=== PATIENT | female | born 1995 ===

== ENCOUNTER 2024-02-29 09:44 | Emergency (ER) | payer MEDICAID, SELFPAY ==
[2024-02-29 09:55] VITALS: BP 122/76; PULSE 98; RESP 16; TEMP 36.1; O2SAT 97; BMI 34.3
[2024-02-29 10:34] LABS: IDNOW Serial# 08D9AD1C; Strep A Nucleic Acid Negative (Negative)
[2024-02-29 10:58] LABS: Influenza A PCR NEGATIVE (Negative); Influenza B PCR NEGATIVE (Negative); Resp Syncy Virus RNA Qual PCR NEGATIVE (Negative); SARS COV2 PCR INHOUSE NEGATIVE (Negative)
--- NOTE | 2024-02-29 10:58 | ED.URI ---
HPI - URI/Sore Throat General Chief Complaint: Upper Respiratory Symptoms Stated Complaint: sore throat, cold symptoms Time Seen by Provider: 02/29/24 10:07 Source: patient (child ) and family Mode of arrival: ambulatory Limitations: no limitations History of Present Illness ED Provider: Hieu DE GUZMAN HPI Narrative: 28 year old female history of obesity presenting to the emergency department with complaints of sore throat for the past 3-4 days, patient reports that she has noted in the mirror that her tonsils are large and they have white spots. She reports pain is severe and she is having hard time sleeping. She thinks she has strep throat however she has never had strep throat in the past. Her child is sick with an upper respiratory infection. Patient denies fevers, chills, chest pain, shortness breath, headache, neck pain, nausea, vomiting, abdominal pain, vision changes, dizziness and weakness. Related Data Previous Rx's ?Medication ?Instructions ?Recorded Magic Mouthwash 5 ml PO TID #240 mL 02/29/24 Diphen/Lido/Antacid 1:1:1 240 mL suspension azithromycin 250 mg tablet See Rx Instructions PO .COMPLEX #6 02/29/24 tabs prednisone 20 mg tablet 40 mg (2 x 20 mg) PO DAILY 5 days 02/29/24 #10 tabs Allergies Allergy/AdvReac Type Severity Reaction Status Date / Time clonazepam [From Klonopin] Allergy Swelling Verified 02/29/24 09:56 Penicillins Allergy Swelling Verified 02/29/24 09:56 Review of Systems Review of Systems: Yes all other systems are reviewed and are negative PMFSH Past Medical History Attestation statement: The following information was validated with the patient. Source: old records reviewed and nursing notes reviewed Social History Social History Advance Directives: No Advance Directives Information Provided: No Physical Exam Vital Signs: Vital Signs: Last Vital Signs Temp 97 F 02/29/24 09:55 Pulse 98 02/29/24 09:55 Resp 16 02/29/24 09:55 BP 122/76 02/29/24 09:55 Pulse Ox 97 02/29/24 09:55 O2 Del Method Room Air 02/29/24 09:55 BMI result Body Mass Index 34.3 vss Appearance: Alert.? Oriented X3.? No acute distress.? Head: Normocephalic, atraumatic, no step-offs or deformities Eyes: Pupils equal, round and reactive to light.? ENT: Pharynx w/ b/l tonsils enlarged w/ exudate b/l uvula midline. Speaking in full sentences controlling secretions well.??External ears normal, No pain with manipulation of external ears bilaterally. No mastoid tenderness. Neck: Normal inspection.? Neck supple.? CVS: Normal heart rate and rhythm.? Pulses normal.? Respiratory: No respiratory distress.? Breath sounds normal.? Abdomen: Soft and nontender.? Skin: Skin warm and dry.? Normal skin color.? Normal skin turgor.? Extremities: No lower extremity edema.? No calf ttp. 5/5 strength to bilateral upper and lower extremities Back: No midline tenderness, no C-spine tenderness, full range of motion, no CVA tenderness bilaterally Neuro: Oriented X 3.? No motor deficit.? No sensory deficit. CN 2-12 intact Course Reevaluation(s) Reevaluation #1: strep, flu, covid, rsv negative. Beltrami pending. Time: 11:02 Reevaluation #2: Beltrami test is pending. Will call patient with results Educated patient on diagnosis and treatment plan, answered all question, patient verbalizes understanding. At this time patient will be discharged home, advised to return with new or worsening symptoms. Educated on worrisome signs and symptoms and when to return. At this time I feel comfortable discharge home. Time: 11:28 Medications Administered Discontinued Medications Generic Name Dose Route Start Last Admin Trade Name Cynthia PRN Reason Stop Dose Admin Dexamethasone Sodium Phosphate 10 mg 02/29/24 10:54 02/29/24 11:13 Dexamethasone Sod Phosphate 10 Mg/Ml Vial IVPUSH 02/29/24 10:55 10 mg ONCE ONE Administration Medical Decision Making Medical Decision Making MDM Narrative: 1100 28 year old female presents w/ sore throat x few days PE - Pharynx w/ b/l tonsils enlarged w/ exudate b/l uvula midline. Speaking in full sentences controlling secretions well.??External ears normal, No pain with manipulation of external ears bilaterally. No mastoid tenderness. HX and pe concerning for mono vs strep. 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 Plan- viral testing. Strep test Differential Diagnosis Differential Diagnoses: The differential diagnosis associated with the presentation includes (HX and pe concerning for mono vs strep. 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 ) Admission/Observation Consideration of admission/observation: Escalation of care including admission/observation considered Lab Data MDM Lab Attestation statement: I reviewed the patient's lab results. Labs: Lab Results 02/29/24 Range/Units 10:10 Influenza Type A (PCR) NEGATIVE (Negative) Influenza Type B (PCR) NEGATIVE (Negative) RSV RNA Qual (PCR) NEGATIVE (Negative) SARS-CoV-2 RNA (RT-PCR) NEGATIVE (Negative) S. pyogenes GrpA MIN Negative (Negative) Prescription Management I considered prescription management with: Antibiotic and Other (steroids, magic mouthwash) Chronic Conditions Patient?s care impacted by: Other (obesity ) Critical Care Time Critical Care Time Critical Care Time: Yes Total Critical Care Time: 35 Attestation: I attest to this time spent taking care of the patient, obtaining history, physical, reviewing labs, imaging, speaking to my attending, specialist or hospitalist. Discharge Plan Discharge Clinical Impression: Pharyngitis Patient Disposition: Home, Self-Care Instructions: Pharyngitis (ED) Additional Instructions: Take your medications as prescribed. If you were prescribed antibiotics today, it is important that you take your medication to their entirety, do not skip any doses, do not finish them early. Follow-up with your primary care provider this week. Return to the emergency department with new or worsening symptoms. In case of emergency call 911 Prescriptions: New azithromycin 250 mg tablet See Rx Instructions .ROUTE .COMPLEX Qty: 6 0RF Rx Instructions: For 250 mg dose pack: take 500 mg today (day 1), then 250 mg for 4 days (days 2-5) prednisone 20 mg tablet 40 mg PO DAILY 5 Days Qty: 10 0RF Magic Mouthwash Diphen/Lido/Antacid 1:1:1 240 mL suspension 5 ml PO TID Qty: 240 0RF Rx Instructions: Lidocaine Viscous 2 % 80mL; diphenhydramine 12.5 mg/5 mL 80mL; aluminum-mag hydrox-simeth [id number]/5mL 80mL Swish and spit, do not swallow Referrals: Physician,Unknown J [Primary Care Provider] - 2 days Stand Alone Forms: Work/School Release Print Language: Malay
[2024-02-29] MEDS: dexAMETHasone sod phosphate 10 MG/ML VIAL IVPUSH (11:13)
[2024-02-29 11:49] VITALS: BP 122/76; PULSE 98; RESP 16; TEMP 36.1; O2SAT 97
[2024-02-29 11:52] LABS: Monotest Negative (Negative)
== END 2024-02-29 12:20 | disposition home or self-care (01) ==
PROVIDERS: Physician Assistant; Emergency Provider Emergency Medicine
DX: J02.9 Acute pharyngitis, unspecified (principal); Z03.818 Encounter for observation for suspected exposure to other biological agents ruled out
CPT/HCPCS: 0241U; 36415; 86308; 87651; 99283; J1100

== ENCOUNTER 2024-09-22 14:12 | Emergency (ER) | payer MEDICAID, SELFPAY ==
[2024-09-22 14:25] VITALS: BP 128/85; PULSE 78; RESP 18; TEMP 36.9; O2SAT 98; BMI 37.7
--- NOTE | 2024-09-22 14:29 | ED.ABDPAIN ---
HPI - Abdominal Pain General Chief Complaint: Abdominal Pain Stated Complaint: n/v/d , abd pain Time Seen by Provider: 09/22/24 17:41 Source: patient Limitations: no limitations History of Present Illness ED Provider: Yusra Disla PA-C HPI narrative: 29-year-old female presents with nausea vomiting diarrhea since last night. Patient woke with symptoms abruptly. Her son is sick with similar symptoms. Denies abdominal pain, cough cold symptoms or fever.No recent hospitalization, use of antibiotics or travel out of the country. Related Data Previous Rx's ?Medication ?Instructions ?Recorded Magic Mouthwash 5 ml PO TID #240 mL 02/29/24 Diphen/Lido/Antacid 1:1:1 240 mL suspension azithromycin 250 mg tablet See Rx Instructions PO .COMPLEX #6 02/29/24 tabs prednisone 20 mg tablet 40 mg (2 x 20 mg) PO DAILY 5 days 02/29/24 #10 tabs acetaminophen 500 mg tablet 1,000 mg (2 x 500 mg) PO Q8H PRN 09/22/24 (Acetaminophen Extra Strength) fever or pain #30 tabs ondansetron HCl 4 mg tablet 4 mg PO Q8H PRN nausea and 09/22/24 vomiting #10 tabs Allergies Allergy/AdvReac Type Severity Reaction Status Date / Time clonazepam [From Klonopin] Allergy Swelling Verified 09/22/24 14:28 Penicillins Allergy Swelling Verified 09/22/24 14:28 Review of Systems Review of Systems Yes all other systems are reviewed and are negative Constitutional: Denies fatigue and Denies fever(s) Cardiovascular: Denies chest pain and Denies dyspnea Respiratory: Denies cough and Denies dyspnea Gastrointestinal: Denies abdominal pain, Reports diarrhea, Reports nausea and Reports vomiting Endocrine: Denies fatigue PMFSH Past Medical History Attestation statement: The following information was validated with the patient. Social History Social History Advance Directives: No Advance Directives Information Provided: Yes Do you have a plan to hurt others: No Plan Patient : No Physical Exam ED Vital Signs: Vital Signs - 24 hr 09/22/24 14:25 09/22/24 18:21 Temperature 98.5 F 98.3 F Pulse Rate 78 65 Respiratory Rate 18 14 Blood Pressure 128/85 107/53 L Pulse Oximetry 98 100 Oxygen Delivery Method Room Air Room Air BMI result Body Mass Index 37.7 Const Other: Alert, well-appearing Orientation/consciousness: patient oriented x3 Resp Effort & Inspection: normal respiratory effort Cardio Other: Normal peripheral perfusion GI Other: Abdomen is soft, nondistended nontender Skin Other: Warm dry no rash Neuro General: patient oriented x3, no focal motor deficits and CN's II-XI intact bilaterally Psych Other: Cooperative Course Course Course Narrative: This is a Rapid Medical Examination (RME) performed by Odin Willis PA-C in triage. Full HPI, ROS, assessment and treatment plan per primary provider in the Main ED. 29 yo female here for eval of LLQ abd pain, vomiting and diarrhea beginning around 0200 this morning. reports eating pork chops, rice, and beans around 1900 yesterday. no one at home w/ similar symptoms. Plan: labs, UA, u preg, covid testing Medical Decision Making Medical Decision Making [facility] Narrative: 29-year-old female presents with nausea vomiting diarrhea since last night. Patient woke with symptoms abruptly. Her son is sick with similar symptoms. Denies abdominal pain, cough cold symptoms or fever. No recent hospitalization, use of antibiotics or travel out of the country No chronic issues History: Per patient I have considered the following differential diagnoses: Viral gastroenteritis, traveler's diarrhea, C diff, diverticulitis Plan: Screening labs and COVID tests ordered from triage, unremarkable. The patient is a viral gastroenteritis, her son is sick with same symptoms, and such illness has been prevalent within the community. This is not diverticulitis, she is not complaining abdominal pain particularly in the left lower quadrant and her exam was benign. She has no risk factors for C diff or traveler's diarrhea. We will Treat symptomatically. I have independently reviewed the following tests: Labs: COVID negative, no leukocytosis, not anemic, no electrolyte abnormality Lab Data 09/22/24 14:44 09/22/24 14:44 Labs: Lab Results 09/22/24 Range/Units 14:44 WBC 6.5 (4.8-10.8) X10*3/uL RBC 4.50 (4.20-5.50) X10*6/uL Hgb 13.8 (12.0-16.0) g/dl Hct 40.9 (37.0-47.0) % MCV 90.9 (80.0-98.0) fL MCH 30.7 (27.0-33.0) pg MCHC 33.7 (31.0-35.0) g/dl RDW 12.6 (11.0-16.0) % Plt Count 231 (160-400) X10*3/uL MPV 9.7 (9.4-12.3) fL Immature Gran % (Auto) 0.5 H (0.0-0.4) % Neut % (Auto) 82.6 H (45-73) % Lymph % (Auto) 10.6 L (20-40) % [place] % (Auto) 4.6 (2-11) % Eos % (Auto) 1.4 (0-4) % Baso % (Auto) 0.3 (0-2) % Lymph # (Auto) 0.7 L (1.2-4.9) X10*3/uL [place] # (Auto) 0.3 (0.1-1.2) X10*3/uL Eos # (Auto) 0.1 (0.0-0.4) X10*3/uL Baso # (Auto) 0.0 (0.0-0.2) X10*3/uL Abs Immat Gran (auto) 0.03 (0.00-0.03) X10*3/uL Absolute Neuts (auto) 5.4 (2.0-8.3) x10*3/uL Absolute Nucleated RBC 0.000 (0.0-0.012) X10*3/uL Nucleated RBC % (auto) 0.0 (0.0-0.2) /100WBC Sodium 139 (135-145) mmol/L Potassium 4.0 (3.3-5.1) mmol/L Chloride 108 (96-108) mmol/L Carbon Dioxide 23 (22-29) mmol/L Anion Gap 12 (12-20) BUN 12 (9-16) mg/dL Creatinine 0.65 (0.5-1.4) mg/dL Estim Creat Clear Calc 146.5 Estimated GFR > 60 Random Glucose 91 (60-115) mg/dL Calcium 9.5 (8.4-10.2) mg/dL Magnesium 1.9 (1.6-2.6) mg/dL Total Bilirubin 0.8 (0.0-1.0) mg/dL AST 22 (5-31) U/L ALT 20 (0-31) U/L Alkaline Phosphatase 77 (39-117) U/L Total Protein 7.7 (6.5-8.0) g/dL Albumin 4.5 (3.5-5.0) g/dL Lipase 19 (8-78) U/L Urine Color Yellow Urine Appearance Clear Urine pH 5.5 (5.0-9.0) Ur Specific [place] >= 1.030 H (1.005-1.025) Urine Protein Negative (Neg-Trace) mg/dL Urine Glucose (UA) Negative (Negative) mg/dL Urine Ketones Trace (Negative) mg/dL Urine Blood Negative (Negative) Urine Nitrite Negative (Negative) Ur Leukocyte Esterase Trace H (Negative) Urine RBC 0-2 (0-2) /HPF Urine WBC 0-5 (0-5) /HPF Ur Squamous Epith Cells 3-5 (0-2) /HPF Urine Bacteria None Seen (None Seen) Hyaline Casts 0-2 (0-2) /LPF Urine Test NEGATIVE (NEGATIVE) COVID-19 (LADI) Negative (Negative) COVID-19 Clin Com See Note Medications Administered Discontinued Medications Generic Name Dose Route Start Last Admin Trade Name Freq PRN Reason Stop Dose Admin Acetaminophen 975 mg 09/22/24 18:22 09/22/24 18:26 Acetaminophen 325 Mg Tablet PO 09/22/24 18:23 975 mg ONCE ONE Administration Sodium Chloride 1,000 mls @ 999 mls/hr 09/22/24 17:45 09/22/24 18:44 Ns IV 09/22/24 18:45 Infused .Q1H1M GAVIN Infusion Ondansetron HCl 4 mg 09/22/24 17:42 09/22/24 17:52 Ondansetron Hcl 4 Mg/2 Ml Vial IVPUSH 09/22/24 17:43 4 mg ONCE ONE Administration Discharge Plan Discharge Clinical Impression: Viral gastroenteritis Patient Disposition: Home, Self-Care Instructions: Gastroenteritis (ED) Additional Instructions: You have a virus causing your symptoms, you had no lab abnormalities, you screen negative for COVID. See home care instructions. Uses Zofran as needed for nausea, use the Tylenol as needed for headache and body ache or fever. Follow up with your primary care provider as needed. Prescriptions: New ondansetron HCl 4 mg tablet 4 mg PO Q8H PRN (Reason: nausea and vomiting) Qty: 10 0RF acetaminophen [Acetaminophen Extra Strength] 500 mg tablet 1,000 mg PO Q8H PRN (Reason: fever or pain) Qty: 30 0RF No Action azithromycin 250 mg tablet See Rx Instructions .ROUTE .COMPLEX Qty: 6 0RF Rx Instructions: For 250 mg dose pack: take 500 mg today (day 1), then 250 mg for 4 days (days 2-5) prednisone 20 mg tablet 40 mg PO DAILY 5 Days Qty: 10 0RF Magic Mouthwash Diphen/Lido/Antacid 1:1:1 240 mL suspension 5 ml PO TID Qty: 240 0RF Rx Instructions: Lidocaine Viscous 2 % 80mL; diphenhydramine 12.5 mg/5 mL 80mL; aluminum-mag hydrox-simeth [id number]/5mL 80mL Swish and spit, do not swallow Print Language: Palestinian
[2024-09-22 15:03] LABS: MANUAL DIFF FLAG NO
[2024-09-22 15:08] LABS: Appearance Urine Clear; Basophils Percent Auto 0.3 % (0-2); Color Urine Yellow; Eosinophils Absolute Auto 0.1 X10*3/uL (0.0-0.4); Eosinophils Percent Auto 1.4 % (0-4); Glucose Urine UA Negative (Negative); Hematocrit 40.9 % (37.0-47.0); Hemoglobin 13.8 g/dl (12.0-16.0); Imm Gran Abs Auto 0.03 X10*3/uL (0.00-0.03); Imm Gran Pct Auto 0.5 % (0.0-0.4); Leukocyte Esterase Urine Trace (Negative); Lymphocytes Absolute Auto 0.7 X10*3/uL (1.2-4.9); Lymphocytes Percent Auto 10.6 % (20-40); Mean Corpuscular HGB Conc 33.7 g/dl (31.0-35.0); Mean Corpuscular Hemoglobin 30.7 pg (27.0-33.0); Mean Corpuscular Volume 90.9 fL (80.0-98.0); Mean Platelet Volume 9.7 fL (9.4-12.3); Monocytes Absolute Auto 0.3 X10*3/uL (0.1-1.2); Monocytes Percent Auto 4.6 % (2-11); Neutrophils Absolute Auto 5.4 x10*3/uL (2.0-8.3); Neutrophils Percent Auto 82.6 % (45-73); Nitrite Urine Negative (Negative); PH 5.5 (5.0-9.0); Platelet Count 231 X10*3/uL (160-400); Red Cell Distribution Width 12.6 % (11.0-16.0); Specific Gravity - Urine >= 1.030 (1.005-1.025); UMIC TRIGGER UACC YES; Urine Blood Negative (Negative); Urine Ketones Trace mg/dL (Negative); Urine Protein Negative (Neg-Trace); White Blood Count 6.5 X10*3/uL (4.8-10.8)
[2024-09-22 15:10] LABS: UPreg QC Valid YES; Urine Pregnancy NEGATIVE (NEGATIVE)
[2024-09-22 15:16] LABS: Bacteria Urine None Seen (None Seen); Hyaline Casts Urine 0-2 /LPF (0-2); RBC Urine 0-2 /HPF (0-2); WBC Urine 0-5 /HPF (0-5)
[2024-09-22 15:20] LABS: Alanine Aminotransferase 20 U/L (0-31); Albumin Level 4.5 g/dL (3.5-5.0); Alkaline Phosphatase 77 U/L (39-117); Anion Gap 12 (12-20); Aspartate Amino Transferase 22 U/L (5-31); Bilirubin Total 0.8 mg/dL (0.0-1.0); Blood Urea Nitrogen 12 mg/dL (9-16); Calcium 9.5 mg/dL (8.4-10.2); Carbon Dioxide 23 mmol/L (22-29); Chloride 108 mmol/L (96-108); Creatinine Clr Calc Pharmacy 146.5; Estimated Glomerular Filt Rate > 60; Glucose Random 91 mg/dL (60-115); Lipase 19 U/L (8-78); Magnesium 1.9 mg/dL (1.6-2.6); Sodium 139 mmol/L (135-145); Total Protein 7.7 g/dL (6.5-8.0)
[2024-09-22 15:23] LABS: COVID-19 Test Negative (Negative); IDNOW Serial# 58CA691E
[2024-09-22] MEDS: 0.9 % Sodium Chloride 1,000 ML 999 ML IV (17:52)
[2024-09-22] MEDS: ondansetron HCL 4 MG/2 ML VIAL IVPUSH (17:52)
[2024-09-22 18:21] VITALS: BP 107/53; PULSE 65; RESP 14; TEMP 36.8; O2SAT 100
[2024-09-22] MEDS: Acetaminophen 325 MG TABLET 975 MG PO (18:26)
--- NOTE | 2024-09-22 18:27 | PC.NURSE ---
pt medicated per MAR
[2024-09-22 19:49] VITALS: BP 107/53; PULSE 65; RESP 14; TEMP 36.8; O2SAT 100
== END 2024-09-22 19:49 | disposition home or self-care (01) ==
PROVIDERS: Physician Assistant Medical; Emergency Provider Internal Medicine
DX: A08.4 Viral intestinal infection, unspecified (principal); R11.2 Nausea with vomiting, unspecified; R10.32 Left lower quadrant pain; Z11.52 Encounter for screening for COVID-19
CPT/HCPCS: 80053; 81001; 81025; 83690; 83735; 85025; 87635; 96361; 96374; 99284; J2405

== ENCOUNTER 2025-01-09 09:47 | Outpatient (REF) | payer MEDICAID, SELFPAY ==
--- NOTE | ~2025-01-09 | XR_ITS ---
EXAMINATION: XR FOOT 3 OR MORE VIEWS RIGHT HISTORY: R toe pain, h/o trauma COMPARISON: There are no prior studies available for comparison. FINDINGS: Three views of the right foot are submitted. Osseous mineralization is normal. There is no fracture or dislocation. The joint spaces are preserved. The soft tissues are unremarkable. XR/XR foot RT min 3V IMPRESSION: Unremarkable examination of the right foot. Electronically signed by: Alex Orozco MD 01/09/2025 10:21 AM EDT
--- OUTSIDE RECORDS SUMMARY | 2025-01-09 11:00 | XMS_ITS | Encounter Summary ---
Author Organization [employer] Address [address] [place] [address] Care Team Providers Care Crane Follower Name Role Phone Jeannie Peña DO Primary Care Provider [phone] Encounter Details Date Type Department Care Team (Late st Contact Info) Description 01/09/2025 9:00 AM EDT Office Visit [facility] MED[facility]INE [address] [place], [place] [phone] Jeannie Peña DO [address] [place], [place] [phone] Chronic toe pain, right foot (Primary Dx); Routine history and physical examination of adult; Obesity (BMI 30-39.9) Social History Tobacco Use Types Packs/Day Years Used Date Smoking Tobacco: Every Day Cigarettes Smokeless Tobacco: Never Tobacco Cessation:Ready to Q uit: Not Asked; Counseling Given: Not Answered Alcohol Use Standard Drinks/Week Comments Never 0 (1 standard drink = 0.6 oz pur e alcohol) Depression Answer Date Recorded Patient Health Questionnaire-9 Score 12 01/09/2025 Patient Health Questionnaire-9 Score 12 01/09/2025 Last PHQ-9: Questionnaire Data Not on file 0 01/09/2025 Housing Stability Answer Date Recorded What is your housing situation today? I have doyle gillette 01/09/[address] you li ve. Do you have problems with any of the following? None of the above 01/09/2025 Food Insecurity Answer Date Recorded Within the past 12 months, y ou worried that your food would run out before you got money to buy more: Never True 01/09/2025 Within the past 12 months,th e food you bought just didn't last and you didn't have enough money to get more: Never True Transportation Answer Date Recorded In the past 12 months, has l ack of transportation kept you from medical appts, meetings, work or from getting things needed for daily living? Yes, it has kept me from non-medical meetings, work, or getting things that I need 01/09/2025 Utilities Answer Date Recorded In the past 12 months, has t he electric, gas, oil or water company threatened to shut off services in your home? No 01/09/2025 Depression Answer Date Recorded Patient Health Questionnaire-2 Score 3 01/09/2025 Internet Access Answer Date Recorded Internet Access Q1 Yes 01/09/2025 Internet Access Q2 Not on file 01/09/2025 Comments No Sex and Gender Information Value Date Recorded Sex Assigned at Female 11/01/2024 8:56 AM EST Legal Sex Female 11:08 AM EDT Gender Identity Female 11/01/2024 8:56 AM EST Sexual Orientation Straight 11/01/2024 8: 56 AM EST documented as of this encounter Last Filed Vital Signs Vital Sign Reading Time Taken Comments Blood Pressure 118/70 01/09/2025 9:05 AM EDT Pulse 82 01/09/2025 9:05 AM EDT Temperature 36.8 ??C (98.3 ??F) 01/09/2025 9:05 AM ED T Respiratory Rate 21 01/09/2025 9:05 AM EDT Oxygen Saturation 98% 01/09/2025 9:05 AM EDT Inhaled Oxygen Concentration - - Weight 105 kg (231 lb) 01/09/2025 9:05 AM EDT Height 162.6 cm (5' 4 ) 01/09/2025 9:05 AM EDT Body Mass Index 39.65 01/09/2025 9:05 AM EDT documented in this encounter Plan of Treatment Upcoming Encounters Date Type Department Care Team (Late st Contact Info) Description 02/04/2025 9:30 AM EDT Procedure Visit [facility] MED[facility]INE [address], [place] [phone] Ina You CNM [address] [place] [address] Scheduled Orders Name Type Priority Associated Diagnoses Orde r Schedule T4, Free Lab Routine Routine history and physical examination of adult Obesity (BMI 30-39.9) Expected: 01/09/2025 (Approximate), Expires: 01/09/2026 Lipid Panel, Standard Lab Routine Routine history and physical examination of adult Obesity (BMI 30-39.9) Expected: 01/09/2025 (Approximate), Expires: 01/09/2026 TSH Lab Routine Routine history and physical examination of adult Obesity (BMI 30-39.9) Expected: 01/09/2025 (Approximate), Expires: 01/09/2026 Vitamin D, 25-Hydroxy, Total, Immunoassay Lab Routine Routine history and physical examination of adult Obesity (BMI 30-39.9) Expected: 01/09/2025 (Approximate), Expires: 01/09/2026 Hepatic Function Panel Lab Routine Routine history and physical examination of adult Obesity (BMI 30-39.9) Expected: 01/09/2025 (Approximate), Expires: 01/09/2026 Hemoglobin A1c Lab Routine Routine history and physical examination of adult Obesity (BMI 30-39.9) Expected: 01/09/2025 (Approximate), Expires: 01/09/2026 CBC Lab Routine Routine history and physical examination of adult Obesity (BMI 30-39.9) Expected: 01/09/2025, Expires: 01/09/2026 Basic Metabolic Panel Lab Routine Routine history and physical examination of adult Obesity (BMI 30-39.9) Expected: 01/09/2025 (Approximate), Expires: 01/09/2026 Hepatitis B surface antigen, EIA Lab Routine Routine history and physical examination of adult Obesity (BMI 30-39.9) Expected: 01/09/2025 (Approximate), Expires: 01/09/2026 Chlamydia/N. Gonorrhoeae RNA, TMA, Urogenitial Microbiology Routine Routine history and physical examination of adult Obesity (BMI 30-39.9) Ordered: 01/09/2025 HIV-1/2 Antigen and Antibodies, Fourth Generation, with Reflexes Lab Routine Routine history and physical examination of adult Obesity (BMI 30-39.9) Expected: 01/09/2025 (Approximate), Expires: 01/09/2026 Hepatitis C Antibody with Reflex to HCV, RNA, Quantitative, Real-Time PCR Lab Routine Routine history and physical examination of adult Obesity (BMI 30-39.9) Expected: 01/09/2025, Expires: 01/09/2026 RPR (Monitor) with Reflex to??Titer Lab Routine Routine history and physical examination of adult Obesity (BMI 30-39.9) Expected: 01/09/2025, Expires: 01/09/2026 Hepatitis B Surface Antibody, Qualitative Lab Routine Routine history and physical examination of adult Obesity (BMI 30-39.9) Expected: 01/09/2025 (Approximate), Expires: 01/09/2026 Hepatitis A Antibody, Total Lab Routine Routine history and physical examination of adult Obesity (BMI 30-39.9) Expected: 01/09/2025 (Approximate), Expires: 01/09/2026 Hepatitis B Core Antibody, Total Lab Routine Routine history and physical examination of adult Obesity (BMI 30-39.9) Expected: 01/09/2025 (Approximate), Expires: 01/09/2026 T-SPOT??.TB Lab Routine Routine history and physical examination of adult Obesity (BMI 30-39.9) Expected: 01/09/2025 (Approximate), Expires: 01/09/2026 documented as of this encounter Procedures Procedure Name Priority Date/Time Associated Diagnosis Comments XR FOOT 3+ VIEWS RIGHT Routine 01/09/2025 9:47 AM EDT Chronic toe pain, right foot documented in this encounter Results * XR Foot 3+ Views Right (01/09/2025 9:47 AM EDT) Anatomical Region Laterality Modality Lower Extremities, Foot Right Radiogra phic Imaging 01/09/2025 9:47 AM EDT Narrative 01/09/2025 10:24 AM EDT ?[facility] ?[address] ?[place] [address] ?XRay Report ? Signed ? Patient: Betts,Karol Sarahy ?MR#: [id number] ?? [id number] ? : 1995 ?Acct:[id number] ? Age/Sex: 29 / F ?ADM Date: 04/16/25 ? Loc: HO.HHCX ? Attending Dr: Jeannie Peña DO ? Ordering Physician: Jeannie Peña DO ?? Date of Service: 01/09/25 ?? Procedure(s): XR foot RT min 3V ?? Accession Number(s): [id number] ? cc: Jeannie Peña DO ? EXAMINATION: ??XR FOOT 3 OR MORE VIEWS RIGHT ? HISTORY: R toe pain, h/o trauma ? COMPARISON: There are no prior studies available for comparison. ? FINDINGS: ? Three views of the right foot are submitted. ??Osseous mineralization is ?? normal. ??There is no fracture or dislocation. ??The joint spaces are ?? preserved. ??The soft tissues are unremarkable. ? XR/XR foot RT min 3V ?? IMPRESSION: ? Unremarkable examination of the right foot. ? Electronically signed by: ??Alex Orozco MD ??01/09/2025 10:21 AM EDT ?? RP ? Dictated By: ?Alex Orozco MD ? Signed By: ?<Electronically signed by Alex Orozco MD in OV> ?01/09/25 1021 ? DD/ 0947 ? TD/TT: 01/09/25 1000 ? Master Tax Advisor: ? Procedure Note Francisco Desouza - 01/09/[address] [address] XRay Report Signed Patient: Karol BettsMR#: [id number] : 1995Acct:[id number] Age/Sex: Date: [birth year]09[birth year]25 Loc: HO.HHCX Attending Dr: Jeannie Peña DO Ordering Physician: Jeannie Peña DO Date of Service: 01/09/25 Procedure(s): XR foot RT min 3V Accession Number(s): [id number] cc: Jeannie Peña DO EXAMINATION: XR FOOT 3 OR MORE VIEWS RIGHT HISTORY: R toe pain, h/o trauma COMPARISON: There are no prior studies available for comparison. FINDINGS: Three views of the right foot are submitted. Osseous mineralization is normal. There is no fracture or dislocation. The joint spaces are preserved. The soft tissues are unremarkable. XR/XR foot RT min 3V IMPRESSION: Unremarkable examination of the right foot. Electronically signed by: Alex Orozco MD 01/09/2025 10:21 AM EDT RP Dictated By: Alex Orozco MD Signed By: <Electronically signed by Alex Orozco MD in OV> 01/09/25 1021 DD/ 0947 TD/TT: 01/09/25 1000 Master Tax Advisor: Jeannie Peña DO IMG XR PROCEDURES Final Resu lt documented in this encounter Visit Diagnoses Diagnosis Chronic toe pain, right foot- Primary Routine history and physical examination of adult Obesity (BMI 30-39.9) documented in this encounter Additional Health Concerns Assessment Noted Time PHQ-9 Depression Total Score: 12 025 10:07 AM EDT documented as of this encounter Care Teams Crane Follower Relationship Specialty Start Date End Date Jeannie Peña DO [address] [place] [id number] PCP - General Family Medicine 01/09/25 documented as of this encounter
--- OUTSIDE RECORDS SUMMARY | 2025-01-09 11:00 | XMS_ITS | Encounter Summary ---
Author Organization [employer] Address [address] 7t [place] [address] Care Team Providers Care Manager Laundry Name Role Phone Jeannie Peña DO Primary Care Provider Encounter Details Date Type Department Care Team (Late st Contact Info) Description 01/09/2025 Telephone [facility] MEDICINE [address] [place], [place] [phone] Jeannie Peña DO [address] [place], [place] [phone] Social History Tobacco Use Types Packs/Day Years Used Date Smoking Tobacco: Every Day Cigarettes Smokeless Tobacco: Never Alcohol Use Standard Drinks/Week Comments Never 0 (1 standard drink = 0.6 oz pur e alcohol) Depression Answer Date Recorded Patient Health Questionnaire-9 Score 12 01/09/2025 Patient Health Questionnaire-9 Score 12 01/09/2025 Last PHQ-9: Questionnaire Data Not on file 0 01/09/2025 Housing Stability Answer Date Recorded What is your housing situation today? I have doyle nain 01/09/[address] you li [...] AM EST documented as of this encounter Miscellaneous Notes * Telephone Encounter - Maddy Tinoco - 01/09/2025 10:16 AM EDT LETTER FOR WORK NEEDED documented in this encounter Plan of Treatment Upcoming Encounters Date Type Department Care Team (Late st Contact Info) Description 02/04/2025 9:30 AM EDT Procedure Visit [facility] MEDICINE [address] [place] [address] Ina You CNM [address] [place] [address] documented as of this encounter Visit Diagnoses Not on filedocumented in this encounter Additional Health Concerns Assessment Noted Time PHQ-9 Depression Total Score: 12 025 10:07 AM EDT documented as of this encounter Care Teams Manager Laundry Relationship Specialty Start Date End Date Jeannie Peña DO [address] [place] [address] PCP - General Family Medicine 01/09/25 documented as of this encounter
--- OUTSIDE RECORDS SUMMARY | 2025-01-09 11:00 | XMS_ITS | Clinical Summary ---
Author Organization [employer] [facility] Address [address] [facility] 7t [place] [address] Care Team Providers Care Hydroelectric Powerplant Supervisor Name Role Phone Jeannie Peña DO Primary Care Provider Allergies Active Allergy Reactions Criticality Noted Date Comments Clonazepam Rash Low 01/09/2025 Penicillins Hives 01/09/2025 Medications No known medications Active Problems Problem Noted Date Diagnosed Date Constipation 01/09/2025 Severe obesity (BMI 35.0-39.9) with comorbidity 01/09/2025 Cervical high risk HPV (human papillomavirus) te st positive 01/09/2025 S/P VSD repair 12/21/2018 Depression 12/21/2018 Anxiety 12/21/2018 Chronic thoracic back pain 12/10/2016 Encounters Date Type Department Care Team Description 01/09/2025 9:00 AM EDT Office Visit [facility] MED[facility] [address] [place] [address] Jeannie Peña DO Chronic toe pain, right foot (Primary Dx); Routine history and physical examination of adult; Obesity (BMI 30-39.9) 01/09/2025 Telephone [facility] MEDICINE [address] [place] [address] Jeannie Peña DO 01/09/2025 Travel 12/31/2024 Patient Outreach [facility] MEDICINE [address] [place] [address] Jeannie Peña DO Pre-visit Planning ((Unable to reach for PVP screening, LVM)) 12/07/2024 Population Health Risk Score [facility] ([facility]) Department [address] [facility] 7 [place] [phone] Provider, Population Health Generic 10/30/2024 Telephone [facility] MEDICINE [address] [place] [address] Melvin Aranda MA chartprep 10/22/2024 Patient Outreach [facility] [address] [place] [phone] Frank Moss MD Pre-visit Planning from Last 3 Months Immunizations Name Administration Dates Next Due DTaP 02/03/2000, 7,08/02/1996,04/03,1995 HPV, Quadrivalent 03/11/2014,11/02/2011,11/14/19 10 Hep A, ped/adol, 2 dose 05/23/2008,11/23/2007 Hep B, Adolescent or Pediatric 04/03/1996,1995,1995 Hib (PRP-T) 03/01/1997, 6,04/03/1996,10/25 IPV 02/03/2000, 6,04/03/1996,10/25 Influenza, IIV3, injectable 06/30/2015 Influenza, seasonal, injecta ble, preservative free 06/30/2015 MMR 02/03/2000,03/01/1997 Meningococcal MCV4P ACYW-135 03/11/2014,11/02/19 11 Pneumococcal Conjugate PCV 13 11/02/2010 Tdap 02/15/2022, 8,03/26/2015,03/24,06/03/2009 Varicella 11/23/2007,08/07/2007 Family History Medical History Relation Name Comments Asthma Brother Diabetes Father Hyperlipidemia Father Hypertension Father No Known Problems Mother Diabetes Paternal Grandmother Hyperlipidemia Paternal Grandmother Hypertension Paternal Grandmother Asthma Sister Relation Name Status Comments Brother Father Alive Mother Alive Paternal Grandmother Sister Social History Tobacco Use Types Packs/Day Years [...] Orientation Straight 11/01/2024 8: 56 AM EST Last Filed Vital Signs Vital Sign Reading [...] Mass Index 39.65 01/09/2025 9:05 AM EDT Plan of Treatment Upcoming Encounters Date Type Department Care Team ([facility] st Contact Info) Description 02/04/2025 9:30 AM EDT Procedure Visit [facility] MEDICINE [address] [place], [place] [phone] Ina You, JAZZ [address] [place] [address] Health Maintenance Due Date Last Done Comments HIV Screening 1995 Lipid Panel 1995 Family Planning (PISQ) 2010 Pneumococcal Vaccine: Pediatrics (0 to 5 Years) and At-Risk Patients (6 to 49) Years) (2 of 2 - PPSV23) 12/28/2010 11/02/2010 Hepatitis C Screening 2013 Pap Smear 2016 COVID-19 Vaccine ( season) 2024 Influenza Vaccine (#1) 2024 06/30/2015, 2014 Depression Monitoring 07/11/2025 01/09/2025, 025 Alcohol/Substance Use Screening 01/09/2026 01/09/2025 Depression Screening 01/09/2026 01/09/2025, 01/10/20 25 SDOH Screening 01/09/2026 01/09/2025 Tobacco Screening 01/09/2026 01/09/2025 DTaP/Tdap/Td Vaccines (11 - Td or Tdap) 02/16/2032 02/15/2022, 04/23/2018, 03/26/2015, Additional history exists Zoster Vaccines (1 of 2) 2045 RSV Patients and Patients Aged 60 years or older (1 - 1-dose 75+ series) 2070 Hepatitis B Vaccines Completed 04/03/1996, 1995, 1995 HIB Vaccines Completed 03/01/1997, 03/1996, 04/03/1996, Additional history exists IPV Vaccines Completed 02/03/2000, 03/1996, 04/03/1996, Additional history exists Hepatitis A Vaccines Completed 05/23/2008, 11/23/19 08 HPV Vaccines Completed 03/11/2014, 03/2012, 11/14/2009 Meningococcal Vaccine Completed 03/11/2014, 011 RSV under 20 months Aged Out No longe r eligible based on patient's age to complete this topic Rotavirus Vaccines Aged Out No longer eligible based on patient's age to complete this topic Procedures Procedure Name Priority Date/Time Associated Diagnosis Comments XR FOOT 3+ VIEWS RIGHT Routine 01/09/2025 9:47 AM EDT Chronic toe pain, right foot from Last 3 Months Results * XR Foot 3+ Views Right (01/09/2025 9:47 AM EDT) Anatomical Region Laterality Modality Lower Extremities, Foot Right Radiogra phic Imaging 01/09/2025 9:47 AM EDT Narrative 01/09/2025 10:24 AM EDT ?[facility] ?[address] ?[place] [address] ?XRay Report ? Signed ? Patient: Karol Betts ?MR#: [id number] ?? [id number] ? : 1995 ?Acct:[id number] ? Age/Sex: 29 / F ?ADM Date: 01/09/25 ? Loc: HO.HHCX ? Attending Dr: Jeannie Peña DO ? Ordering Physician: Jeannie Peña DO ?? Date of Service: 01/09/25 ?? Procedure(s): XR foot RT min 3V ?? Accession Number(s): [id number] ? cc: Jeannie Peña DO ? EXAMINATION: [...] DD/ 0947 ? TD/TT: 01/09/25 1000 ? Printed Circuit Board Layout Designer: ? Procedure Note Randiter, Image - 01/09/2025 [facility] [address] [place] [address] XRay Report Signed Patient: Karol BettsMR#: [id number] : 1995Acct:[id number] Age/Sex: Date: 01/09/25 Loc: HO.HHCX Attending Dr: Jeannie Peña DO Ordering Physician: Jeannie Peña DO Date of Service: 01/09/25 Procedure(s): XR foot RT min 3V Accession Number(s): [id number] cc: Jeannie Peña DO EXAMINATION: XR FOOT [...] Alex Orozco MD 01/09/2025 10:21 AM EDT Dictated By: Alex Orozco MD Signed By: <Electronically signed by Alex Orozco MD in OV> 01/09/25 1021 DD/ 0947 TD/TT: 01/09/25 1000 Printed Circuit Board Layout Designer: Jeannie Peña DO IMG XR PROCEDURES Final Resu lt from Last 3 Months Insurance * Guarantor: Karol Betts Account Type Relation to Patient Date of Phone Billing Address Personal/Family Self [address] [place] [address] [facility] C3 Care Teams Hydroelectric Powerplant Supervisor Relationship Specialty Start Date End Date Jeannie Peña DO [address] [place] [id number] PCP - General Family Medicine 01/09/25
--- OUTSIDE RECORDS SUMMARY | 2025-01-09 11:00 | XMS_ITS | Clinical Summary ---
Author Organization [facility] it Address [address] [place] [address] Care Team Providers Care Control Room Helper Name Role Phone Dada Will MD Primary Care Provider [phone] Surgical History Surgery Date Site/Laterality Comments CARDIAC SURGERY 09/1995 PROCEDURE: HISTORICAL HEART SURGERY(ASD,VSD,VALVES); COMMENT: VSD repair Medical History Medical History Date Comments Bipolar affective (CMS/HCC V24, CMS/HCC V28) 06/30/2015 DX:Bipolar affective (HCC) Depression 12/21/2018 DX:Depression Anxiety 12/21/2018 DX:Anxiety Large breasts 12/10/2016 DX:Large breasts Chronic thoracic back pain 12/10/2016 DX:Ch ronic thoracic back pain S/P VSD repair 12/21/2018 DX:S/P VSD repai r Homelessness 12/21/2018 DX:Homelessness Family History Medical History Relation Name Comments Diabetes Maternal Grandmother Relation Name Status Comments Brother Alive x1 healthy Father Alive unknown history Maternal Grandfather Alive Maternal Grandmother Alive Mother Alive healthy Paternal Grandfather Sister Alive x3 healthy Social History Tobacco Use Types Packs/Day Years Used Date Smoking Tobacco: Former Cigarettes Q uit: 11/20/2014 Smokeless Tobacco: Never Alcohol Use Standard Drinks/Week Comments Yes 0 (1 standard drink = 0.6 oz pur e alcohol) Comments Unknown Sex and Gender Information Value Date Recorded Sex Assigned at Not on file Legal Sex Female 2:15 AM EST Gender Identity Not on file Sexual Orientation Not on file Obstetrics History Plan of Treatment Health Maintenance Due Date Last Done Comments Cervical Cancer Screening: Pap Smear 2016 COVID-19 Vaccine (1 - 2024-25 season) 2024 DTaP,Tdap,and Td Vaccines (8 - Td or Tdap) 03/26/2025 03/26/2015, 06/03/2009, 02/03/2000, Additional history exists Influenza Vaccine (Season Ended) 2025 06/30/2015 Hepatitis B Vaccines Completed 04/03/1996, 1995, 1995 HIB Vaccines Completed 03/01/1997, 03/1996, 04/03/1996, Additional history exists IPV Vaccines Completed 02/03/2000, 03/1996, 04/03/1996, Additional history exists MMR Vaccines Completed 02/03/2000, 03/01/1997 Varicella Vaccines Completed 11/23/2007, 08/07/2007 Hepatitis A Vaccines Completed 05/23/2008, 11/23/19 08 Pneumococcal Vaccine: Pediatrics (0 to 5 Years) and At-Risk Patients (6 to 64 Years) Aged Out 11/02/2010 No longer eligible based on patient's age to complete this topic HPV Vaccines Completed 03/11/2014, 03/2012, 11/14/2009 Meningococcal ACWY Vaccine Completed 03/11/2014, Meningococcal B Vaccine Aged Out No l onger eligible based on patient's age to complete this topic RSV Immunization Patients Under 20 months Aged Out No longer eligible based on patient's age to complete this topic Care Teams Control Room Helper Relationship Specialty Start Date End Date Dada Will MD [address] [place] [id number] PCP - General Internal Medicine 09/18/20
--- OUTSIDE RECORDS SUMMARY | 2025-01-09 11:00 | XMS_ITS | Encounter Summary ---
Author Organization [employer] Address [address] 7t [place] [address] Care Team Providers Care Motion Picture Projectionist Name Role Phone Carolineshabbir Jeannie Primary Care Provider Encounter Details Date Type Department Care Team (Latest Contact Info) Description 01/09/2025 Travel Social History Tobacco Use Types Packs/Day Years [...] your housing situation today? I have doyle sing 01/09/[address] you li [...] AM EST documented as of this encounter Plan of Treatment Upcoming Encounters Date Type Department Care Team (Late st Contact Info) Description 02/04/2025 9:30 AM EDT Procedure Visit [facility] MEDICINE [address] [place] [address] Ina You CNM [address] [place] [address] documented as of this encounter Visit Diagnoses Not on filedocumented in this encounter Additional Health Concerns Assessment Noted Time PHQ-9 Depression Total Score: 12 025 10:07 AM EDT documented as of this encounter Care Teams Motion Picture Projectionist Relationship Specialty Start Date End Date Jeannie Peña DO 230 [place] [address] PCP - General Family Medicine 01/09/25 documented as of this encounter
[2025-01-09 11:34] LABS: Hematocrit 39.5 % (37.0-47.0); Hemoglobin 13.2 g/dl (12.0-16.0); Mean Corpuscular HGB Conc 33.4 g/dl (31.0-35.0); Mean Corpuscular Hemoglobin 30.6 pg (27.0-33.0); Mean Corpuscular Volume 91.4 fL (80.0-98.0); Mean Platelet Volume 10.1 fL (9.4-12.3); Platelet Count 218 X10*3/uL (160-400); Red Blood Count 4.32 X10*6/uL (4.20-5.50); Red Cell Distribution Width 12.5 % (11.0-16.0); White Blood Count 4.6 X10*3/uL (4.8-10.8)
[2025-01-09 11:39] LABS: Estimated Average Glucose 105 mg/dL; Hemoglobin A1C 118.9439 umol/L; Hemoglobin A1c % 5.3 % (<6.0)
[2025-01-09 11:55] LABS: Alanine Aminotransferase 19 U/L (0-31); Albumin Level 4.2 g/dL (3.5-5.0); Alkaline Phosphatase 61 U/L (39-117); Anion Gap 10 (12-20); Aspartate Amino Transferase 19 U/L (5-31); Bilirubin Direct 0.2 mg/dL (0.0-0.5); Bilirubin Total 0.4 mg/dL (0.0-1.0); Blood Urea Nitrogen 11 mg/dL (9-16); Calcium 9.3 mg/dL (8.4-10.2); Carbon Dioxide 25 mmol/L (22-29); Chloride 108 mmol/L (96-108); Cholesterol 170 mg/dL (<200); Estimated Glomerular Filt Rate > 60; Glucose Random 99 mg/dL (60-115); HDL Cholesterol 52 mg/dL (>40); LDL Cholesterol Calculated 102 mg/dL (<100); Sodium 139 mmol/L (135-145); Triglycerides 81 mg/dL (<150)
[2025-01-09 12:00] LABS: HBS Num1 1.41 mIU/mL (0-7.99); HBc Num1 0.15 S/CO (0.00-0.79); HBsAGNum1 0.28 S/CO (0.00-0.99); HIV AB/AG Nonreactive (Nonreactive); HIV Num 1 0.07 S/CO (0.00-0.99); Hepatitis B Core Antibody Nonreactive (Nonreactive); Hepatitis B Surface Antigen Negative (Negative); ~HepC Num1 0.33 S/CO (0.00-0.79); ~Hepatitis B Surface Antibody NONREACTIVE (Nonreactive); ~Hepatitis C Antibody Nonreactive (Nonreactive)
[2025-01-09 12:11] LABS: Free T4 (Free Thyroxine) 0.87 ng/dL (0.71-1.85); Thyroid Stimulating Hormone 1.18 uIU/mL (0.32-4.0); Vitamin D 25-OH Total 14.9 ng/mL (>30)
[2025-01-09 13:18] LABS: CT PCR NOT DETECTED (Not Detect.); NG PCR NOT DETECTED (Not Detect.)
[2025-01-10 09:05] LABS: Hepatitis A Antibody IgG REACTIVE (Nonreactive); ~Hepatitis A Antibody IgG 7.91 S/CO (0.00-0.99)
[2025-01-10 15:07] LABS: RPR Rapid Plasma Reagin NON-REACTIVE (NON-REACTIVE)
== END 2025-01-09 09:48 | disposition home or self-care (01) ==
LOC: HO.HHCX 09:47
PROVIDERS: Visit Provider Family Medicine
DX: M79.674 Pain in right toe(s) (principal); G89.29 Other chronic pain; E66.9 Obesity, unspecified; Z11.4 Encounter for screening for human immunodeficiency virus [HIV]; Z11.3 Encounter for screening for infections with a predominantly sexual mode of transmission; Z00.00 Encounter for general adult medical examination without abnormal findings
CPT/HCPCS: 73630; 80048; 80061; 80076; 82306; 83036; 84439; 84443; 85027; 86481; 86592; 86704; 86706; 86708; 86803; 87340; 87389; 87491; 87591

== ENCOUNTER → 2025-01-09 09:47 | Outpatient (BNV) | payer MEDICAID, SELFPAY | PROVIDERS: Visit Provider Radiology Diagnostic Radiology | DX: M79.671 Pain in right foot (principal) | CPT/HCPCS: 73630 ==

== ENCOUNTER 2025-01-09 09:59 | Outpatient (REF) | payer MEDICAID, SELFPAY ==
--- OUTSIDE RECORDS SUMMARY | 2025-01-09 11:25 | XMS_ITS | Encounter Summary ---
Author Organization [email or web address] Address [address] 7t [place] [address] Care Team Providers Care Consumer Electronics Merchandiser Name Role Phone Jeannie Peña DO Primary Care Provider Encounter Details Date Type Department Care Team (Late st Contact Info) Description 01/09/2025 Telephone [facility] MEDICINE [address] [place], [place] [phone] Jeannie Peña DO [address] [place], [place] [phone] Social History Tobacco Use Types Packs/Day Years [...] Description 02/04/2025 9:30 AM EDT Procedure Visit [facility] MEDICINE [address] [place] [address] Ina You CNM [address] [place] [address] documented as of this encounter Visit Diagnoses Not on filedocumented in this encounter Additional Health Concerns Assessment Noted Time PHQ-9 Depression Total Score: 12 025 10:07 AM EDT documented as of this encounter Care Teams Consumer Electronics Merchandiser Relationship Specialty Start Date End Date Jeannie Peña DO 230 [place] [address] PCP - General Family Medicine 01/09/25 documented as of this encounter
--- OUTSIDE RECORDS SUMMARY | 2025-01-09 11:25 | XMS_ITS | Encounter Summary ---
Author Organization [employer] Address [address] [place] [address] Care Team Providers Care Collections Technician Name Role Phone Jeannie Peña DO Primary Care Provider [phone] Encounter Details Date Type Department Care Team (Late st Contact Info) Description 01/09/2025 9:00 AM EDT Office Visit [facility] MEDICINE [address] [place], [place] [phone] Jeannie Peña DO 230 [place], [place] [phone] Chronic toe pain, right foot (Primary Dx); [...] Description 02/04/2025 9:30 AM EDT Procedure Visit [facility] MEDICINE [address] [place], [place] [phone] Ina You CNM 230 [place] [address] Scheduled Orders Name Type Priority Associated Diagnoses [...] AM EDT Narrative 01/09/2025 10:24 AM EDT ?[facility] ?[address] ?[place] [address] ?XRay Report ? Signed ? Patient: Betts,Karol Sarahy ?MR#: [id number] ?? [id number] ? : 1995 ?Acct:[id number] ? Age/Sex: 29 / F ?ADM Date: 04/16/25 ? Loc: HO.HHCX ? Attending Dr: Jeannie Peña DO ? Ordering Physician: Jeannie Peña DO ?? Date of Service: 01/09/25 ?? Procedure(s): XR foot RT min 3V ?? Accession Number(s): [id number] ? cc: Jeannie Peña DO ? EXAMINATION: [...] DD/ 0947 ? TD/TT: 01/09/25 1000 ? Vp Design: ? Procedure Note Francisco Desouza - 01/09/[address] [address] XRay Report Signed Patient: Karol BettsMR#: [id number] : 1995Acct:[id number] Age/Sex: Date: [birth year]09[birth year]25 Loc: HO.HHCX Attending Dr: Jeannie Peña DO Ordering Physician: Jeannie Peña DO Date of Service: 01/09/25 Procedure(s): XR foot RT min 3V Accession Number(s): [id number] cc: Jeannie Peña DO EXAMINATION: XR FOOT [...] 01/09/25 1021 DD/ 0947 TD/TT: 01/09/25 1000 Vp Design: Jeannie Peña DO IMG XR PROCEDURES Final Resu lt documented in this encounter Visit Diagnoses Diagnosis Chronic toe pain, right foot- Primary Routine history and physical examination of adult Obesity (BMI 30-39.9) documented in this encounter Additional Health Concerns Assessment Noted Time PHQ-9 Depression Total Score: 12 025 10:07 AM EDT documented as of this encounter Care Teams Collections Technician Relationship Specialty Start Date End Date Jeannie Peña DO [address] [place] [address] PCP - General Family Medicine 01/09/25 documented as of this encounter
--- OUTSIDE RECORDS SUMMARY | 2025-01-09 11:25 | XMS_ITS | Clinical Summary ---
Author Organization [facility] it Address [address] [place] [address] Care Team Providers Care Body Care Manager Name Role Phone Dada Will MD Primary Care Provider [phone] Surgical History Surgery Date Site/Laterality Comments CARDIAC [...] age to complete this topic Care Teams Body Care Manager Relationship Specialty Start Date End Date Dada Will MD [address] [place] [address] PCP - General Internal Medicine 09/18/20
--- OUTSIDE RECORDS SUMMARY | 2025-01-09 11:25 | XMS_ITS | Encounter Summary ---
Author Organization [employer] Address [address] [facility] [address] [facility] [address] 7t [place] [address] Care Team Providers Care Funeral Home Assistant Name Role Phone Carolineshabbir Jeannie Primary Care [...] Description 02/04/2025 9:30 AM EDT Procedure Visit [facility] MEDICINE [address] [place] [address] Ina You CNM [address] [place] [address] documented as of this encounter Visit Diagnoses Not on filedocumented in this encounter Additional Health Concerns Assessment Noted Time PHQ-9 Depression Total Score: 12 025 10:07 AM EDT documented as of this encounter Care Teams Funeral Home Assistant Relationship Specialty Start Date End Date Jeannie Peña DO 230 [place] [address] PCP - General Family Medicine 01/09/25 documented as of this encounter
--- OUTSIDE RECORDS SUMMARY | 2025-01-09 11:25 | XMS_ITS | Clinical Summary ---
Author Organization [facility] Address [address] [facility] 7t [place] [address] Care Team Providers Care Ultrasonic Seaming Machine Operator Name Role Phone Jeannie Peña DO Primary [...] Description 01/09/2025 9:00 AM EDT Office Visit [facility] MEDICINE [address] [place] [address] Jeannie Peña DO Chronic toe pain, right foot (Primary Dx); Routine history and physical examination of adult; Obesity (BMI 30-39.9) 01/09/2025 Telephone [facility] MEDICINE [address] [place] [address] Jeannie Peña DO 01/09/2025 Travel 12/31/2024 Patient Outreach [facility] MEDICINE [address] [place] [address] Jeannie Peña DO Pre-visit Planning ((Unable to reach for PVP screening, LVM)) 12/07/2024 Population Health Risk Score [facility] (C[facility]) Department [address] [facility] [address] [place] [phone] Provider, Population Health Generic 10/30/2024 Telephone [facility] MEDICINE [address] [place] [address] Melvin Aranda MA chartprep 10/22/2024 Patient Outreach [facility] MEDICINE [address] [place] [phone] Frank Moss MD Pre-visit Planning from Last [...] Upcoming Encounters Date Type Department Care Team ([facility] st Contact Info) Description 02/04/2025 9:30 AM EDT Procedure Visit [facility] MEDICINE [address] [place], [place] [phone] Ina You, JAZZ [address] [place] [address] Health Maintenance Due Date Last Done Comments [...] AM EDT Narrative 01/09/2025 10:24 AM EDT ?[facility] ?[address] ?[place] [address] ?XRay Report ? Signed ? Patient: Karol Betts ?MR#: [id number] ?? [id number] ? : 1995 ?Acct:[id number] ? Age/Sex: 29 / F ?ADM Date: 01/09/25 ? Loc: HO.HHCX ? Attending Dr: Jeannie Peña DO ? Ordering Physician: Jeannie Peña DO ?? Date of Service: 01/09/25 ?? Procedure(s): XR foot RT min 3V ?? Accession Number(s): [id number] ? cc: Jeannie Peña DO ? EXAMINATION: [...] DD/ 0947 ? TD/TT: 01/09/25 1000 ? Retail Wireless Sales Representative: ? Procedure Note Randiter, Image - 01/09/2025 [facility] [address] [address] XRay Report Signed Patient: Karol BettsMR#: [id number] : 1995Acct:[id number] Age/Sex: Date: [birth year]25 Loc: HO.HHCX Attending Dr: Jeannie Peña DO Ordering Physician: Jeannie Peña DO Date of Service: 01/09/25 Procedure(s): XR foot RT min 3V Accession Number(s): [id number] cc: Jeannie Peña DO EXAMINATION: XR FOOT [...] 01/09/25 1021 DD/ 0947 TD/TT: 01/09/25 1000 Retail Wireless Sales Representative: Jeannie Peña DO IMG XR PROCEDURES Final Resu lt from Last 3 Months Insurance * Guarantor: Karol Betts Account Type Relation to Patient Date of Phone Billing Address Personal/Family Self [address] [place] [address] [facility] C[facility] Care Teams Ultrasonic Seaming Machine Operator Relationship Specialty Start Date End Date Jeannie Peña DO [address] [place] [phone] PCP - General Family Medicine 01/09/25
== END 2025-01-09 10:00 | disposition home or self-care (01) ==
LOC: HO.HHCL 09:59
PROVIDERS: Visit Provider Family Medicine
DX: Z13.89 Encounter for screening for other disorder (principal)

== ENCOUNTER 2025-01-29 09:05 | Outpatient (REF) | payer MEDICAID, SELFPAY ==
--- NOTE | ~2025-01-29 | XR_ITS ---
EXAMINATION: XR SHOULDER, LEFT CLINICAL INFORMATION: atraumatic left shoulder pain COMPARISON: None available. TECHNIQUE: AP external rotation, Grashey, scapular Y, and axillary views of the left shoulder. FINDINGS: No acute cortical disruption or malalignment. No lytic or blastic lesions. No joint space narrowing. No subchondral cyst formation or sclerosis and the articular surfaces. XR/XR shoulder LT min 2V IMPRESSION: Normal x-ray left shoulder. Electronically signed by: Raffaele Mccormack MD 01/29/2025 09:31 AM EDT
--- OUTSIDE RECORDS SUMMARY | 2025-01-29 09:53 | XMS_ITS | Clinical Summary ---
Author Organization [employer] Address [address] [place] [address] Care Team Providers Care Dean Name Role Phone Donna Peñafer Primary Care Provider Allergies Active Allergy Reactions Criticality Noted Date Comments Clonazepam Rash Low 01/09/2025 Penicillins Hives 01/09/2025 Medications ergocalciferol (Vitamin D2) 1.25 MG (04740 UT) capsule Take 1 capsule (1.25 mg) by mouth 1 (one) time per week. 12 capsule 5 04/11/20 25 Active acetaminophen (Tylenol) 500 MG tablet Take 2 tablets (1,000 mg) by mouth every 6 (six) hours if needed for moderate pain or fever for up to 25 doses. 50 tablet 5 Active ibuprofen 800 MG tablet Take 1 tablet (800 mg) by mouth if needed in the morning, at noon, and at bedtime for mild pain for up to 10 days. 30 tablet 5 02/09/20 25 Active tiZANidine (Zanaflex) 2 MG tablet Take 1 tablet (2 mg) by mouth every 8 (eight) hours if needed for muscle spasms for up to 10 days. 30 tablet 5 02/09/20 25 Active lidocaine (Lidoderm) 5 % patch Apply 1 patch topically Once per day. Remove & discard patch within 12 hours or as directed by MD. May use 2 patches at once. 60 patch 2 5 01/30/20 26 Active Active Problems Problem Noted Date Diagnosed Date Tobacco dependence 01/29/2025 Constipation 01/09/2025 Severe obesity (BMI 35.0-39.9) with comorbidity 01/09/2025 Cervical high risk HPV (human papillomavirus) te st positive 01/09/2025 S/P VSD repair 12/21/2018 Depression 12/21/2018 Anxiety 12/21/2018 Chronic thoracic back pain 12/10/2016 Encounters Date Type Department Care Team Description 01/29/2025 8:40 AM EDT Office Visit [facility] [address] [place] [phone] Acute pain of left shoulder (Primary Dx); S/P VSD repair; Tobacco dependence 01/28/[address] [address] Jeannie Peña DO Nurse Triage 01/11/[address] [address] Jeannie Peña DO 01/09/2025 9:00 AM EDT Office Visit [address] [address] Jeannie Peña DO Chronic toe pain, right foot (Primary Dx); Routine history and physical examination of adult; Obesity (BMI 30-39.9) 01/09/[address] [address] Jeannie Peña DO 01/09/2025 Travel 12/31/2024 Patient Outreach [address] [address] Jeannie Peña DO Pre-visit Planning ((Unable to reach for PVP screening, LVM)) 12/07/2024 Population Health Risk Score [facility] [address] [place] [phone] Provider, Population Health Generic from Last 3 Months Immunizations Name Administration Dates Next Due DTaP 02/03/2000, 7,08/02/1996,04/03,1995 HPV, Quadrivalent 03/11/2014,11/02/2011,11/14/19 10 Hep A, ped/adol, 2 dose 05/23/2008,11/23/2007 Hep B, Adolescent or Pediatric 04/03/1996,1995,1995 Hib (PRP-T) 03/01/1997,199 6,04/03/1996,10/25 IPV 02/03/2000,199 6,04/03/1996,10/25 Influenza, IIV3, injectable 06/30/2015 Influenza, seasonal, [...] Sign Reading Time Taken Comments Blood Pressure 116/76 01/29/2025 8:37 AM EDT Pulse 79 01/29/2025 8:37 AM EDT Temperature 36.7 ??C (98 ??F) 01/29/2025 8:37 AM EDT Respiratory Rate 17 01/29/2025 8:37 AM EDT Oxygen Saturation 98% 01/29/2025 8:37 AM EDT Inhaled Oxygen Concentration - - Weight 106 kg (234 lb 3.2 oz) 01/29/2025 8:37 AM EDT Height 162.6 cm (5' 4 ) 01/09/2025 9:05 AM EDT Body Mass Index 40.2 01/09/2025 9:05 AM EDT Plan of Treatment Upcoming Encounters Date Type Department Care Team (Late st Contact Info) Description 02/04/2025 9:30 AM EDT Procedure Visit [facility] [address] [place] [phone] Ina You CNM [address] [place] [address] Health Maintenance Due Date Last Done Comments Family Planning (PISQ) 2010 Pneumococcal Vaccine: Pediatrics (0 to 5 Years) and At-Risk Patients (6 to 49) Years) (2 of 2 - PPSV23) 12/28/2010 11/02/2010 Pap Smear 2016 COVID-19 Vaccine ( season) 2024 Influenza Vaccine (#1) 2024 06/30/2015, 2014 Alcohol/Substance Use Screening 01/09/2026 01/09/2025 Depression Screening 01/09/2026 01/09/2025, 01/10/20 25 SDOH Screening 01/09/2026 01/09/2025 Tobacco Screening 01/29/2026 01/29/2025 Lipid Panel 01/09/2030 01/09/2025 DTaP/Tdap/Td Vaccines (11 - Td or [...] 03/2012, 11/14/2009 Meningococcal Vaccine Completed 03/11/2014, 011 HIV Screening Completed 01/09/2025 Hepatitis C Screening Completed 01/09/2025 RSV under 20 months Aged Out No longe r eligible based on patient's age to complete this topic Rotavirus Vaccines Aged Out No longer eligible based on patient's age to complete this topic Procedures Procedure Name Priority Date/Time Associated Diagnosis Comments XR SHOULDER 2+ VIEWS LEFT Routine 01/29/2025 9:05 AM EDT Acute pain of left shoulder T-SPOT(R).TB Routine 01/09/2025 10:02 AM EDT Routine history and physical examination of adult Obesity (BMI 30-39.9) HEPATITIS B CORE AB TOTAL Routine 01/09/2025 10:02 AM EDT Routine history and physical examination of adult Obesity (BMI 30-39.9) HEPATITIS A ANTIBODY, TOTAL Routine 01/09/2025 10:02 AM EDT Routine history and physical examination of adult Obesity (BMI 30-39.9) HEPATITIS B SURFACE ANTIBODY, QUALITATIVE Routine 01/09/2025 10:02 AM EDT Routine history and physical examination of adult Obesity (BMI 30-39.9) RPR (MONITOR) W/REFL TITER Routine 01/09/2025 10:02 AM EDT Routine history and physical examination of adult Obesity (BMI 30-39.9) HEPATITIS C AB W/REFL TO HCV RNA, QN, PCR Routine 01/09/2025 10:02 AM EDT Routine history and physical examination of adult Obesity (BMI 30-39.9) HIV 1/2 ANTIGEN/ANTIBODY, FOURTH GENERATION W/RFL Routine 01/09/2025 10:02 AM EDT Routine history and physical examination of adult Obesity (BMI 30-39.9) HEPATITIS B SURFACE ANTIGEN, EIA Routine 01/09/2025 10:02 AM EDT Routine history and physical examination of adult Obesity (BMI 30-39.9) BASIC METABOLIC PANEL Routine 01/09/2025 10:02 AM EDT Routine history and physical examination of adult Obesity (BMI 30-39.9) CBC Routine 01/09/2025 10:02 AM EDT Routine history and physical examination of adult Obesity (BMI 30-39.9) HEMOGLOBIN A1C Routine 01/09/2025 10:02 AM EDT Routine history and physical examination of adult Obesity (BMI 30-39.9) HEPATIC FUNCTION PANEL Routine 01/09/2025 10:02 AM EDT Routine history and physical examination of adult Obesity (BMI 30-39.9) VITAMIN D,25-OH,TOTAL,IA Routine 01/09/2025 10:02 AM EDT Routine history and physical examination of adult Obesity (BMI 30-39.9) TSH Routine 01/09/2025 10:02 AM EDT Routine history and physical examination of adult Obesity (BMI 30-39.9) LIPID PANEL, STANDARD Routine 01/09/2025 10:02 AM EDT Routine history and physical examination of adult Obesity (BMI 30-39.9) T4, FREE Routine 01/09/2025 10:02 AM EDT Routine history and physical examination of adult Obesity (BMI 30-39.9) CHLAMYDIA/N. GONORRHOEAE RNA, TMA, UROGENITAL Routine 01/09/2025 10:02 AM EDT Routine history and physical examination of adult Obesity (BMI 30-39.9) XR FOOT 3+ VIEWS RIGHT Routine 01/09/2025 9:47 AM EDT Chronic toe pain, right foot from Last 3 Months Results * XR Shoulder 2+ Views Left (01/29/2025 9:05 AM EDT) Anatomical Region Laterality Modality Upper Extremities, Shoulder Left Radi ographic Imaging 01/29/2025 9:0 5 AM EDT Narrative 01/29/2025 9:34 AM EDT ?[facility] ?[address] ?[place] [address] ?XRay Report ? Signed ? Patient: Betts,Karol Sarahy ?MR#: [id number] ?? [id number] ? : 1995 ?Acct:[id number] ? Age/Sex: 29 / F ?ADM Date: 05/06/25 ? Loc: HO.HHCX ? Attending Dr: Qasim Sorenson MD ? Ordering Physician: QASIM SORENSON MD ?? Date of Service: 01/29/25 ?? Procedure(s): XR shoulder LT min 2V ?? Accession Number(s): [id number] ? cc: QASIM SORENSON MD ? EXAMINATION: ?? XR SHOULDER, LEFT ? CLINICAL INFORMATION: ?? atraumatic left shoulder pain ? COMPARISON: ?? None available. ? TECHNIQUE: ?? AP external rotation, Grashey, scapular Y, and axillary views of the ?? left shoulder. ? FINDINGS: ?? No acute cortical disruption or malalignment. No lytic or blastic ?? lesions. No joint space narrowing. No subchondral cyst formation or ?? sclerosis and the articular surfaces. ? XR/XR shoulder LT min 2V ?? IMPRESSION: ?? Normal x-ray left shoulder. ? Electronically signed by: ??Raffaele Mccormack MD ??01/29/2025 09:31 AM ?? EDT RP ? Dictated By: ?Raffaele Guzmán MD ? Signed By: ?<Electronically signed by Raffaele Lopez MD in OV> ? 01/29/25 0931 ? DD/ 4 ? TD/TT: 01/29/25927 ? [employer] Enterprise [employer]: ? Procedure Note Francisco Desouza - 01/29/[address] [address] XRay Report Signed Patient: Karol BettsMR#: [id number] : 1995Acct:[id number] Age/Sex: Date: 01/29/25 Loc: HO.HHCX Attending Dr: Qasim Sorenson MD Ordering Physician: QASIM SORENSON MD Date of Service: 01/29/25 Procedure(s): XR shoulder LT min 2V Accession Number(s): [id number] cc: QASIM SORENSON MD EXAMINATION: XR SHOULDER, LEFT CLINICAL INFORMATION: atraumatic left shoulder pain COMPARISON: None available. TECHNIQUE: AP external rotation, Grashey, scapular Y, and axillary views of the left shoulder. FINDINGS: No acute cortical disruption or malalignment. No lytic or blastic lesions. No joint space narrowing. No subchondral cyst formation or sclerosis and the articular surfaces. XR/XR shoulder LT min 2V IMPRESSION: Normal x-ray left shoulder. Electronically signed by: Raffaele Mccormack MD 01/29/2025 09:31 AM EDT RP Dictated By: Raffaele Guzmán MD Signed By: <Electronically signed by Raffaele Lopez MDin OV> 01/29/25930 DD/ 4 TD/TT: 01/29/25927 [employer]: us Qasim Sorenson MD IMG XR PROCEDURES Final Result * (ABNORMAL) Vitamin D, 25-Hydroxy, Total, Immunoassay (01/09/2025 10:02 AM EDT) Vitamin D 25-OH Total 14.9(L) >30 ng/mL [facility] Comment: Health Based Reference Values*< 20 ??ng/mL ??Solgvcelr22-86 ng/mL ??Insufficient> 30 ??ng/mL ??Sufficient*Jeannie GUTIERREZ. N Engl J Med. 2007;357:266-280There is no well-established upper level of normal vitamin Dlevels. Some laboratories use 50 ng/mL as an upper limit ofnormal. However, toxicity is patient-dependent and may occurat any level. Careful correlation with the patient'spresentation is necessary and, if there is concern forvitamin D toxicity, treatment should be consideredirrespective of the serum level.Care must be taken in interpreting Vitamin D results fromdifferent laboratories and methodologies. ??Published datademonstrated that results from patients undergoinghemodialysis may show a negative bias when tested withvarious automated 25-OH vitamin D assays when compared toLC- MS/MS.When testing samples from patients whose predominant form ofVitamin D is Vitamin D2, such as patients receiving VitaminD2 supplementation, results that are subtherapeutic shouldbe confirmed with another method such as LC-MS/MS. Blood Venous blood specimen / Unknown 01/09/2025 10:02 AM EDT 01/09/2025 11:10 AM EDT us Jeannie Peña DO LAB BLOOD ORDERABLES Final R esult [facility] [address] [place] [phone] * T-SPOT??.TB (01/09/2025 10:02 AM EDT) T Spot TB Negative Negative [facility] Comment:A negative test resu lt does not exclude the possibilityof exposure to or infection with Mycobacteriumtuberculosis (M. tuberculosis). Patients with recentexposure to TB infected individuals exhibiting anegative T-SPOT.TB result should be considered forretesting within 6 weeks or if other relevant clinicalsymptoms indicate. Results from T-SPOT.TB testing mustbe used in conjunction with each individual'sepidemiological history, current medical status,and results of other diagnostic evaluations.The T-SPOT.TB test is qualitative and results arereported as positive, borderline, or negative, giventhat the test controls perform as expected. In linewith the Centers for Disease Control and Prevention's2010 recommendation to report quantitative measurementsalongside the qualitative result, the laboratoryprovides spot counts for informational purposes only.The T-SPOT.TB test should not be interpreted as aquantitative test. TS PANEL A 0 [facility] TS PANEL B 0 [facility] Negative Control Passed [facility] Positive Control Passed [facility] Comment:For additional infor rigoberto, please refer [email or web address]/faq/RYR783(This link is being provided for informational/educational purposes only.)REPORT COMMENT:REC'D IN YTHIS TEST WAS PERFORMED AT:[id number] [place] [address]QTPJRGNFARAZ PORRAS MD,PHD 01/09/2025 10:0 2 AM EDT 01/09/2025 11:10 AM EDT us Jeannie Peña DO LAB BLOOD ORDERABLES Final R esult [facility] [address] [place] [phone] * Hepatitis C Antibody with Reflex to HCV, RNA, Quantitative, Real-Time PCR (01/09/2025 10:02 AM EDT) Pathologist [facility] Hepatitis C Antibody Nonreactive Nonreactive [facility] Comment:Antibodies to HCV no t detected; does not exclude early acuteHCV infection. Blood Venous blood specimen / Unknown 01/09/2025 10:02 AM EDT 01/09/2025 11:10 AM EDT [facility] LAB BLOOD ORDERABLES Final R esult Performing Organization Address [facility] Co de Phone Number [facility] [address] [place] [phone] * Hepatitis A Antibody, Total (01/09/2025 10:02 AM EDT) Pathologist [facility] Hepatitis A Antibody IgG REACTIVE Nonreactive [facility] Comment:The presence of IgG anti-HAV implies past HAV infection(recent or distant) or vaccination against HAV. Blood Venous blood specimen / Unknown 01/09/2025 10:02 AM EDT 01/09/2025 11:10 AM EDT [facility] LAB BLOOD ORDERABLES Final R esult Performing Organization Address [facility] Co de Phone Number [facility] [address] [place] [phone] * Chlamydia/N. Gonorrhoeae RNA, TMA, Urogenitial (01/09/2025 10:02 AM EDT) [facility] CT PCR NOT DETECTED Not Detect. [facility] Comment:A not detected test result does not exclude the possibilityof infection because test results can be affected byimproper specimen collection, concurrent antibiotic therapy,or the number of organisms in the specimen which may bebelow the sensitivity of the test. As with many diagnostictests, results from the Xpert CT/NG assay should beinterpreted in conjunction with other laboratory andclinical data available to the clinician.Xpert CT/NG performance has not been evaluated in patientsless than 14 years of age. The assay should not be used forthe evaluationof suspected sexual abuse or for other medico-legalindications. Additional testing is recommended in anycircumstance when false positive or false negative resultscould lead to adverse medical, social or psychologicalconsequences. NG PCR NOT DETECTED Not Detect. [facility] Comment:A not detected test result does not exclude the possibilityof infection because test results can be affected byimproper specimen collection, concurrent antibiotic therapy,or the number of organisms in the specimen which may bebelow the sensitivity of the test. As with many diagnostictests, results from the Xpert CT/NG assay should beinterpreted in conjunction with other laboratory andclinical data available to the clinician.Xpert CT/NG performance has not been evaluated in patientsless than 14 years of age. The assay should not be used forthe evaluationof suspected sexual abuse or for other medico-legalindications. Additional testing is recommended in anycircumstance when false positive or false negative resultscould lead to adverse medical, social or psychologicalconsequences. Urine Urethral structure / Unknown 01/09/2025 10:02 AM EDT 01/09/2025 11:14 AM EDT Narrative [facility] - 01/09/2025 1:18 PM EDT Urine Jeannie Peña DO LAB MICROBIOLOGY - GENERAL O RDERABLES Final Result Performing Organization Address [facility] Co de Phone Number [facility] [address] [place] [phone] * Hepatitis B surface antigen, EIA (01/09/2025 10:02 AM EDT) Hepatitis B Surface Ag Negative Negative [facility] Blood Venous blood specimen / Unknown 01/09/2025 10:02 AM EDT 01/09/2025 11:10 AM EDT Jeannie Peña DO LAB BLOOD ORDERABLES Final R esult Performing Organization Address [facility] Co de Phone Number [facility] [address] [place] [phone] * Hepatitis B Core Antibody, Total (01/09/2025 10:02 AM EDT) Pathologist [facility] Hepatitis B Core Antibody Nonreactive Nonreactive [facility] Blood Venous blood specimen / Unknown 01/09/2025 10:02 AM EDT 01/09/2025 11:10 AM EDT Jeannie Peña LAB BLOOD ORDERABLES Final R esult Performing Organization Address [facility] Co de Phone Number [facility] [address] [place] [phone] * RPR (Monitor) with Reflex to??Titer (01/09/2025 10:02 AM EDT) Pathologist [facility] RPR (Monitor) w/Refl Titer NON-REACTI VE NON-REACT RUDI [facility] Comment:THIS TEST WAS PERFOR MED AT:[facility] [place] [id number] MADDOX MD Rapid Plasma Reagin Ab Titer TNP [facility] Blood Venous blood specimen / Unknown 01/09/2025 10:02 AM EDT 01/09/2025 11:10 AM EDT Jeannie Peña LAB BLOOD ORDERABLES Final R esult Performing Organization Address City/[facility] Co de Phone Number [facility] [address] [place] [phone] * HIV-1/2 Antigen and Antibodies, Fourth Generation, with Reflexes (01/09/2025 10:02 AM EDT) Pathologist [facility] HIV AB/AG Nonreactive Nonreactive [facility] Comment:HIV-1 p24 Ag and/or HIV-1/HIV-2 Ab not detected.A test result that is nonreactive does not exclude thepossibility of exposure to or infection with HIV-1 and/orHIV-2. Nonreactive results in this assay for individualswith prior exposure to HIV-1 and/or HIV-2 may be due toantigen and antibody levels that are below the limit ofdetection of this assay.The [employer] HIV Ag/Ab Combo assay result andsupplemental assay results should be interpreted inconjunction with the patient's clinical presentation,history and other laboratory results. If the results areinconsistent with clinical evidence, additional testing issuggested to confirm the result. Blood Venous blood specimen / Unknown 01/09/2025 10:02 AM EDT 01/09/2025 11:10 AM EDT Jeannie Peña DO LAB BLOOD ORDERABLES Final R esult Performing Organization Address [facility] Co de Phone Number [facility] [address] [place] [phone] * Hepatitis B Surface Antibody, Qualitative (01/09/2025 10:02 AM EDT) Pathologist [facility] ~Hepatitis B Surface Antibody NONREACTIVE Nonreactive [facility] Comment:Nonreactive: < 8.00 mIU/mL Blood Venous blood specimen / Unknown 01/09/2025 10:02 AM EDT 01/09/2025 11:10 AM EDT Jeannie Peña DO LAB BLOOD ORDERABLES Final R esult Performing Organization Address City/[facility] Co de Phone Number [facility] [address] [place] [phone] * (ABNORMAL) CBC (01/09/2025 10:02 AM EDT) Pathologist [facility] White Blood Count 4.6(L) 4.8 - 10.8 X10*3/uL [facility] Red Blood Count 4.32 4.20 - 5.50 X10*6/uL [facility] Hemoglobin 13.2 12.0 - 16.0 g/dl [facility] Hematocrit 39.5 37.0 - 47.0 % [facility] Mean Corpuscular Volume 91.4 80.0 - 98.0 fL [facility] Mean Corpuscular Hemoglobin 30.6 27.0 - 33.0 pg [facility] Mean Corpuscular HGB Conc 33.4 31.0 - 35.0 g/dl [facility] Red Cell Distribution Width 12.5 11.0 - 16.0 % [facility] Platelet Count 218 160 - 400 X10*3/uL [facility] Mean Platelet Volume 10.1 9.4 - 12.3 fL [facility] NRBC Pct Auto 0.0 0.0 - 0.2 /100WBC [facility] NRBC Abs Auto 0.000 0.0 - 0.012 X10*3/uL [facility] Blood Venous blood specimen / Unknown 01/09/2025 10:02 AM EDT 01/09/2025 11:10 AM EDT Jeannie Peña LAB BLOOD ORDERABLES Final R esult Performing Organization Address City/[facility]/ZIP Co de Phone Number [facility] [address] [place] [phone] * TSH (01/09/2025 10:02 AM EDT) Pathologist [facility] Thyroid Stimulating Hormone 1.18 0.32 - 4.0 uIU/mL [facility] Comment:TSH 3rd Generation ( [facility]) Blood Venous blood specimen / Unknown 01/09/2025 10:02 AM EDT 01/09/2025 11:10 AM EDT Jeannie Peña LAB BLOOD ORDERABLES Final R esult Performing Organization Address City/[facility]/ZIP Co de Phone Number [facility] [address] [place] [phone] * T4, Free (01/09/2025 10:02 AM EDT) Free T4 (Free Thyroxine) 0.87 0.71 - 1.85 ng/dL [facility] Blood Venous blood specimen / Unknown 01/09/2025 10:02 AM EDT 01/09/2025 11:10 AM EDT Jeannie Casey LAB BLOOD ORDERABLES Final R esult Performing Organization Address City/[facility]/ZIP Co de Phone Number [facility] [address] [place] [phone] * Hemoglobin A1c (01/09/2025 10:02 AM EDT) Pathologist [facility] Hemoglobin A1c 5.3 <6.0 % [facility] Comment:Hemoglobin A1C Refer ence Range Adults: 4.8 - 6.0 % Non diabetic: < 6.0 % Goal: < 7.0 %Additional Action Suggested: > 8.0 %Note: Hemoglobin A1c results are invalid for patients with abnormal amounts of HbF. Blood transfusions may impact the HbA1c concentration in the patient sample. Estimated Average Glucose 105 mg/dL [facility] Comment:eAG = Estimated ave rage glucose which is %A1C expressed asaverage glucose, using the formula of the O5U-JgetwibNkilhwm Glucose study (ADAG), Diabetes Care, Vol.31,#8,Apr. 2007 Blood Venous blood specimen / Unknown 01/09/2025 10:02 AM EDT 01/09/2025 11:10 AM EDT Jeannie Peña DO LAB BLOOD ORDERABLES Final R esult Performing Organization Address City/[facility]/ZIP Co de Phone Number [facility] [address] [place] [phone] * Hepatic Function Panel (01/09/2025 10:02 AM EDT) Bilirubin, Total 0.4 0.0 - 1.0 mg/dL [facility] Bilirubin, Direct 0.2 0.0 - 0.5 mg/dL [facility] Aspartate Amino Transferase 19 5 - 31 U/L [facility] Alanine Aminotransferase 19 0 - 31 U/L [facility] Total Protein 7.0 6.5 - 8.0 g/dL [facility] Albumin Level 4.2 3.5 - 5.0 g/dL [facility] Alkaline Phosphatase 61 39 - 117 U/L [facility] Blood Venous blood specimen / Unknown 01/09/2025 10:02 AM EDT 01/09/2025 11:10 AM EDT us Jeannie Peña DO LAB BLOOD ORDERABLES Final R esult [facility] [address] [place] [phone] * (ABNORMAL) Lipid Panel, Standard (01/09/2025 10:02 AM EDT) Triglycerides 81 <150 mg/dL [facility] Comment:Desirable Triglyceri de: less than 150 mg/dLBorderline High Triglyceride 150-199 mg/dLHigh Triglyceride: 200-499 mg/dLVery High Triglyceride: greater than or equal to 5OO mg/dL Cholesterol 170 <200 mg/dL [facility] Comment:Desirable Cholestero l: less than 200 mg/dLBorderline High Cholesterol: 200-239 mg/dLHigh Cholesterol: greater than 239 mg/dL LDL Cholesterol Calculated 102(H) <100 mg/dL [facility] Comment:Desirable LDL: less than 100 mg/dLNear Optimal/Above Optimal LDL: 110- 129 mg/dLBorderline High LDL: 130-159 mg/dLHigh LDL: 160-189 mg/dLVery High LDL: greater than or equal to 190 mg/dL HDL Cholesterol 52 >40 mg/dL [facility] Comment:Desirable HDL: great er than 40 mg/dL Note: This HDL assay may give artificially low results in patients with liver disease. Blood Venous blood specimen / Unknown 01/09/2025 10:02 AM EDT 01/09/2025 11:10 AM EDT us Jeannie Casey DO LAB BLOOD ORDERABLES Final R esult Performing Organization Address [facility] Co de Phone Number [facility] [address] [place] [address] [phone] * (ABNORMAL) Basic Metabolic Panel (01/09/2025 10:02 AM EDT) Sodium 139 135 - 145 mmol/L [facility] Potassium 4.0 3.3 - 5.1 mmol/L [facility] Chloride 108 96 - 108 mmol/L [facility] Carbon Dioxide 25 22 - 29 mmol/L [facility] Anion Gap 10(L) 12 - 20 [facility] Urea Nitrogen (BUN) 11 9 - 16 mg/dL [facility] Creatinine, Serum 0.63 0.5 - 1.4 mg/dL [facility] Estimated Glomerular Filt Rate >60 [facility] Comment:Chronic Kidney Disea se: Estimated GFR < 60 mL/min/1.21h4Pdluha Kidney Disease: Estimated GFR < 15 mL/min/1.73m2 Glucose 99 60 - 115 mg/dL [facility] Calcium 9.3 8.4 - 10.2 mg/dL [facility] Blood Venous blood specimen / Unknown 01/09/2025 10:02 AM EDT 01/09/2025 11:10 AM EDT Jeannie Peña DO LAB BLOOD ORDERABLES Final R esult Performing Organization Address City/[facility]/ZIP Co de Phone Number [facility] [address] [place] [address] [phone] * XR Foot 3+ Views Right (01/09/2025 9:47 AM EDT) Anatomical Region Laterality Modality Lower Extremities, Foot Right Radiogra phic Imaging 01/09/2025 9:47 AM EDT Narrative 01/09/2025 10:24 AM EDT ?[facility] ?[address] ?[place] [address] ?XRay Report ? Signed ? Patient: Betts,Karol Sarahy ?MR#: [id number] ?? [id number] ? : 1995 ?Acct:[id number] ? Age/Sex: 29 / F ?ADM Date: 01/09/25 ? Loc: HO.HHCX ? Attending Dr: Jeannie Peña DO ? Ordering Physician: Jeannie Peña DO ?? Date of Service: 01/09/25 ?? Procedure(s): XR foot RT min 3V ?? Accession Number(s): [id number] ? cc: Jeannie Peña DO ? EXAMINATION: [...] DD/ 0947 ? TD/TT: 01/09/25 1000 ? Java Enterprise Architect: ? Procedure Note Lyly, Francisco - 01/09/[address] [address] XRay Report Signed Patient: Karol Betts#: [id number] : 1995Acct:[id number] Age/Sex: FADM Date: 01/09/25 Loc: HO.HHCX Attending Dr: Jeannie Peña DO Ordering Physician: Jeannie Peña DO Date of Service: 01/09/25 Procedure(s): XR foot RT min 3V Accession Number(s): [id number] cc: Jeannie Peña DO EXAMINATION: XR FOOT [...] 01/09/25 1021 DD/ 0947 TD/TT: 01/09/25 1000 Java Enterprise Architect: Jeannie Peña DO IMG XR PROCEDURES Final Resu lt from Last 3 Months Insurance [facility] C3 Care Teams Dean Relationship Specialty Start Date End Date Jeannie Peña DO [address] [place] [address] PCP - General Family Medicine 01/09/25
--- OUTSIDE RECORDS SUMMARY | 2025-01-29 09:53 | XMS_ITS | Encounter Summary ---
Author Organization [facility] Address [address] [place] [address] Care Team Providers Care Circus Agent Name Role Phone DeepaJeannie foss Primary Care Provider Reason for Referral * Consultation (Routine) - Pending Review Specialty Diagnoses / Procedures Referred By Erica faith Referred To Contact Cardiology Diagnoses S/P VSD repair Qasim Sorenson MD [address] [place] [address] Phone: tel: fax: Referral ID Status Reason Start Date Expiration Date Visits Requested Visits Authorized [id number] Pending Review Specialty Services Required 01/29/2025 01/29/2026 1 1 Reason for Visit * Reason Comments Shoulder Pain Encounter Details Date Type Department Care Team (Late st Contact Info) Description 01/29/2025 8:40 AM EDT Office Visit [facility] [address] [place], [place] [phone] Acute pain of left shoulder (Primary Dx); S/P VSD repair; Tobacco dependence Social History Tobacco Use Types Packs/Day Years [...] 3.2 oz) 01/29/2025 8:37 AM EDT Height - - Body Mass Index 40.2 01/09/2025 9:05 AM EDT documented in this encounter Plan of Treatment Upcoming Encounters Date Type Department Care Team (Late st Contact Info) Description 02/04/2025 9:30 AM EDT Procedure Visit [facility] MEDICINE [address] [place] [phone] Ina You CNM [address] [facility] [place] [address] Scheduled Orders Name Type Priority Associated Diagnoses Orde r Schedule Uric acid Lab Routine Acute pain of left shoulder Expected: 01/29/2025 (Approximate), Expires: 01/29/2026 Lyme Disease Ab with Reflex to Blot (IgG, IgM) Lab Routine Acute pain of left shoulder Expected: 01/29/2025, Expires: 01/29/2026 Scheduled Referrals Name Type Priority Associated Diagnoses Order Schedule Referral to Cardiology Outpatient Referral Routine S/P VSD repair Expected: 01/29/2025 (Approximate), Expires: 01/29/2026 documented as of this encounter Procedures Procedure Name Priority Date/Time Associated Diagnosis Comments XR SHOULDER 2+ VIEWS LEFT Routine 01/29/2025 9:05 AM EDT Acute pain of left shoulder documented in this encounter Results * XR Shoulder 2+ Views Left (01/29/2025 9:05 AM EDT) Anatomical Region Laterality Modality Upper Extremities, Shoulder Left Radi ographic Imaging 01/29/2025 9:05 AM EDT Narrative 01/29/2025 9:34 AM EDT ?[facility] ?[address] ?[place] [address] ?XRay Report ? Signed ? Patient: Betts,Karol Sarahy ?MR#: [id number] ?? [id number] ? : 1995 ?Acct:[id number] ? Age/Sex: 29 / F ?ADM Date: 01/29/25 ? Loc: HO.HHCX ? Attending Dr: Qasim Sorenson MD ? Ordering Physician: QASIM SORENSON MD ?? Date of Service: 01/29/25 ?? Procedure(s): XR shoulder LT min 2V ?? Accession Number(s): [id number] ? cc: QASIM SORENSON MD ? EXAMINATION: [...] ? DD/ 4 ? TD/TT: 01/29/25927 ? Scientific Recruiter: ? Procedure Note Lyly, Francisco - 01/29/[address] [address] XRay Report Signed Patient: Karol BettsMR#: [id number] : 1995Acct:[id number] Age/Sex: Date: 01/29/25 Loc: HO.HHCX Attending Dr: Qasim Sorenson MD Ordering Physician: QASIM SORENSON MD Date of Service: 01/29/25 Procedure(s): XR shoulder LT min 2V Accession Number(s): [id number] cc: QASIM SORENSON MD EXAMINATION: XR SHOULDER, [...] Raffaele Mccormack MD 01/29/2025 09:31 AM EDT Dictated By: Raffaele Guzmán MD Signed By: <Electronically signed by Raffaele Lopez MDin OV> 01/29/25930 DD/ TD/TT: 01/29/2528 Scientific Recruiter: Qasim Sorneson MD IMG XR PROCEDURES Final Result documented in this encounter Visit Diagnoses Diagnosis Acute pain of left shoulder- Primary S/P VSD repair Other postprocedural status Tobacco dependence Tobacco use disorder documented in this encounter Additional Health Concerns Assessment Noted Time PHQ-9 Depression Total Score: 12 025 10:07 AM EDT documented as of this encounter Care Teams Circus Agent Relationship Specialty Start Date End Date Jeannie Peña DO [address] [place] [address] PCP - General Family Medicine 01/09/25 documented as of this encounter
--- OUTSIDE RECORDS SUMMARY | 2025-01-29 09:53 | XMS_ITS | Encounter Summary ---
Author Organization [employer] Address [address] [place] [address] Care Team Providers Care Shirt Marker Name Role Phone Jeannie Peña DO Primary Care Provider [phone] Reason for Visit * Reason Onset Date Comments Nurse Triage 01/28/2025 Encounter Details Date Type Department Care Team ([facility] st Contact Info) Description 01/28/2025 Telephone [facility] MEDICINE [address] [place] [address] Jeannie Peña DO [address] [place], [place] [phone] Nurse Triage Social History Tobacco Use Types Packs/Day Years [...] encounter Miscellaneous Notes * Telephone Encounter - Cecy Hadley RN - 01/28/2025 9:39 AM EDT Called pt. Pt. States that her left shoulder near shoulder blade is swollen and painful. Pt does have full ROM. Unknown etiology. Pt states she just woke up like this this morning. Pt. Has to work today due to a call out. 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 Advised to take Ibuprofen, ice area and come to walk in. Pt. Works every day from 10am-7pm. [facility] Uber ride ordered for pt. To come to [facility] walk in tomorrow am for 830am 01/29/25. Protocol Used: Shoulder Pain (Adult) Protocol-Based Disposition: Go to Office or Video Visit Now- Pt. Unable to come into office today. Positive Triage Questions: * Severe pain (e.g., excruciating, unable to do any normal activities) * Shoulder pains with exertion (e.g., walking) and pain goes away on resting and not present now * Unable to use arm at all and because of shoulder pain or stiffness * All higher-acuity triage questions were negative Care Advice Discussed: * Reassurance and Education - Shoulder Pain * Pain Medicines * Use a Cold Pack for Pain * Telephone Encounter - Fortino Myrick - 01/28/2025 9:32 AM EDT Symptom: Shoulder Pain - Not From Injury Outcome: Schedule an urgent appointment (within 1 hour) or talk to a nurse or provider soon Reason: Can't use the shoulder normally The caller accepted this outcome. documented in this encounter Plan of Treatment Upcoming Encounters Date Type Department Care Team (Late st Contact Info) Description 02/04/2025 9:30 AM EDT Procedure Visit [facility] MED[facility] [address] [place] [address] Ina You CNM [address] [place], [place] [phone] documented as of this encounter Visit Diagnoses Not on filedocumented in this encounter Additional Health Concerns Assessment Noted Time PHQ-9 Depression Total Score: 12 025 10:07 AM EDT documented as of this encounter Care Teams Shirt Marker Relationship Specialty Start Date End Date Jeannie Peña DO [address] [place] [address] PCP - General Family Medicine 01/09/25 documented as of this encounter
--- OUTSIDE RECORDS SUMMARY | 2025-01-29 09:53 | XMS_ITS | Clinical Summary ---
Author Organization [facility] it Address [address] [place] [address] Care Team Providers Care Video Camera Operator Name Role Phone Dada Will MD Primary Care Provider [phone] Surgical History Surgery Date Site/Laterality Comments CARDIAC [...] age to complete this topic Care Teams Video Camera Operator Relationship Specialty Start Date End Date Dada Will MD [address] [place] [address] PCP - General Internal Medicine 09/18/20
[2025-01-29 11:51] LABS: Uric Acid 3.8 mg/dL (2.4-5.7)
[2025-01-30 05:53] LABS: Lyme Abs Screen <0.90 index
== END 2025-01-29 09:06 | disposition home or self-care (01) ==
LOC: HO.HHCX 09:05
PROVIDERS: Visit Provider Emergency Medicine
DX: M25.512 Pain in left shoulder (principal)
CPT/HCPCS: 36415; 73030; 84550; 86617; 86618

== ENCOUNTER → 2025-01-29 09:05 | Outpatient (BNV) | payer MEDICAID, SELFPAY | PROVIDERS: Visit Provider Radiology Diagnostic Radiology | DX: M25.512 Pain in left shoulder (principal) | CPT/HCPCS: 73030 ==

== ENCOUNTER 2025-01-29 09:17 | Outpatient (REF) | payer MEDICAID, SELFPAY ==
--- OUTSIDE RECORDS SUMMARY | 2025-01-29 10:08 | XMS_ITS | Encounter Summary ---
Author Organization [facility] Address [address] [place] [address] Care Team Providers Care Lead Ramp Service Man Name Role Phone Dada Will MD Primary Care Provider [phone] [phone] Reason for Visit * Reason Onset Date Comments Form 05/19/2021 Encounter Details Date Type Department Care Team Description 05/19/2021 Telephone Adult Medicine [address] [address] Dada Will MD [address] [place] [address] Form Social History Tobacco Use Types Packs/Day Years Used Date Smoking Tobacco: Former Cigarettes 0.2 Q uit: 11/20/2014 Smokeless Tobacco: Never Comments:1-2 day Alcohol Use Standard Drinks/Week Comments Yes 0 (1 standard drink = 0.6 oz pur e alcohol) daily 40 oz until 01/26 Sex Assigned at Date Recorded Not on file documented as of this encounter Miscellaneous Notes * Telephone Encounter - Anabela Ortiz - 05/25/2021 9:46 AM EDT Pt no showed her appt with Dr Will on 05/22/21. Unable to complete this request until she is seen. * Telephone Encounter - Renae Wood - 05/19/2021 4:37 PM EDT Last appointment in adult medicine? 10/09/[address] Will 04/27 Which [employer] is the form for: [employer] Release of information form is not needed Is there a life threatening situation that requires the use of electricity in order to operate equipment? YES If yes, what is the situation/medical problem? Heart Murmur If yes, List of equipment: N/A If paper form is presented: Is the patients portion including their name and demographics completedon the form along with their signature? YES Which provider is form to be completed by? Dr. Will ELECTRONIC FORM: Name on account?: Karol Betts Address of account? [address] [place] [address] Account number? [id number] Patient requesting the form be: Fax to other office/MD at fax # [phone] Patient has been informed that completion will be in 7-10 business days: YES documented in this encounter Plan of Treatment Not on file documented as of this encounter Visit Diagnoses Not on filedocumented in this encounter Care Teams Lead Ramp Service Man Relationship Specialty Start Date End Date Dada Will MD [address] [place] [address] PCP - General Internal Medicine 09/18/20 documented as of this encounter
--- OUTSIDE RECORDS SUMMARY | 2025-01-29 10:08 | XMS_ITS | Encounter Summary ---
Author Organization [facility] Address [address] [place] [address] Care Team Providers Care Glass Edger Name Role Phone Adina Dozier MD Primary Care Provider Dada Stewart MD Primary Care Provider [phone] [phone] Reason for Visit * Reason Onset Date Comments Care Management 06/25/2019 Encounter Details Date Type Department Care Team Description 06/25/2019 Telephone Adult Medicine [address] [address] Adina Dozier MD Care Management Social History Tobacco Use Types Packs/Day Years Used Date Smoking Tobacco: Former Cigarettes Q uit: 11/20/2014 Smokeless Tobacco: Never Comments:started smoking at age 18 Alcohol Use Standard Drinks/Week Comments Yes 0 (1 standard drink = 0.6 oz pur e alcohol) occasional social Sex Assigned at Date Recorded Not on file documented as of this encounter Miscellaneous Notes * Telephone Encounter - Mary Carmen Mikhail Buchanan - 06/25/2019 9:41 AM EDT The patient has reported no care management needs at this time. The following goals were met duringcase management: PT1s were put in the for patient and have been updated as necessary. When patient enrolled in case management she was homeless, at the time of graduation she is living in her own apartment at [address] [place] [address] in [place]. She was provided with assistance in getting a copy of her certificate and an ID card, her food stamps were reinstated and she was provided informationabout local food pantries. She was referred to [facility] clinic for behavioral health services. A CHW brought her there to complete the intake process. CCM educated the patient on er, urgent care, and pcp appointments usage, to reschedule and not to no show for scheduled appointments. For future care management needs patient is connected with a Behavioral Health Community Partner through [facility]. The assigned insurance healthcare representative is Marie Guan , [email or web address] documented in this encounter Plan of Treatment Not on file documented as of this encounter Visit Diagnoses Not on filedocumented in this encounter Care Teams Glass Edger Relationship Specialty Start Date End Date Adina Dozier MD PCP - General Internal Medicine 05/10/19 0 Dada Will MD [address] [place] [address] PCP - General Internal Medicine 09/18/20 documented as of this encounter
--- OUTSIDE RECORDS SUMMARY | 2025-01-29 10:08 | XMS_ITS | Clinical Summary ---
Author Organization [facility] Address [address] [place] [address] Care Team Providers Care Basket Patcher Name Role Phone Dada Will MD Primary Care Provider [phone] [phone] Allergies Active Allergy Reactions Severity Noted Date Comments Sulfamethoxazole-Trimethoprim Itching/Pruritus 10/09/2019 Penicillins Swelling/Edema 10/09/2019 Medications Medication Sig Dispensed Refills Start Date End Date Status sertraline (ZOLOFT) 25 MG tabletIndications:Anxie ty and depression Take 1 Tab by mouth daily. 30 Tab 5 10/09/2019 Active Vit-Fe Fumarate-FA ( VITAMIN PLUS LOW IRON) 27-1 MG Tab Take 1 Tab by mouth daily. 30 Tab 12 01/30/2020 Active omeprazole (PRILOSEC) 20 MG capsule Take 1 Cap by mouth daily for 360 days. 30 Cap 0 04/18/2020 Active Active Problems Problem Noted Date Anxiety 12/21/2018 Depression 12/21/2018 S/P VSD repair 12/21/2018 Homelessness 12/21/2018 Chronic thoracic back pain 12/10/2016 Large breasts 12/10/2016 Bipolar affective 06/30/2015 Immunizations Name Administration Dates Next Due DTaP 02/03/2000, 7,08/02/1996,04/03/1996, HPV (Gardasil) 03/11/2014,11/02/2011,11/14/2009 Hepatitis A-2 dose (<19yrs) 05/23/2008, 8 Hepatitis B-3 Dose (<19yrs) 04/03/1996, 6,1995 Hib Vaccine,prp-t, Im 03/01/1997,08/02/1996,05/1996,1995 Influenza (> 6 Months) 06/30/2015 MMR (Cgygmgl-Wdrra-Eidekaz) 02/03/2000, 7 Meningococcal (Menactra) 03/11/2014,11/02/2010 Pneumococcal Conjugate PCV-13 11/02/2010 Polio (IPV) 02/03/2000,08/02/1996,04/03/1996 ,1995 Tdap 03/26/2015,06/03/2009 Varicella 11/23/2007,08/07/2007 Family History Medical History Relation [...] Assigned at Date Recorded Not on file Last Filed Vital Signs Vital Sign Reading Time Taken Comments Blood Pressure 102/76 04/18/2020 8:35 AM EDT Pulse 80 04/18/2020 8:35 AM EDT Temperature 37 ??C (98.6 ??F) 06/12/2018 10:56 AM EDT Respiratory Rate 16 04/18/2020 8:35 AM EDT Oxygen Saturation - - Inhaled Oxygen Concentration - - Weight 91.8 kg (202 lb 6.4 oz) 04/18/2020 8:35 A M EDT Height 160 cm (5' 3 ) 04/18/2020 8:35 AM EDT Body Mass Index 35.85 04/18/2020 8:35 AM EDT Plan of Treatment Health Maintenance Due Date Last Done Comments Covid-19 Vaccine (#1) 02/22/1996 CERVICAL CANCER SCREENING 2016 BASELINE HEALTH EXAM 18-39 06/30/2020 06/30/2015 CHOLESTEROL SCREENING 06/30/2020 06/30/2015 BMI CHECK/ADVISE 09/26/2024 01/30/2020, , 12/10/2016, Additional history exists DEPRESSION SCREENING/FOLLOWUP 09/26/2024, 10/09/2019, 12/21/2018 SOCIAL NEEDS SCREENING 09/26/2024 DTAP/TDAP/TD (8 - Td or Tdap) 03/26/2025 (External Completion of Vaccination per patient), 03/26/2015, 06/03/2009, Additional history exists INFLUENZA (Season Ended) 2025 06/30/2015 PNEUMOCOCCAL VACCINE FOR HIG H RISK PATIENTS (#1) 2060 11/02/2010 Care Teams Basket Patcher Relationship Specialty Start Date End Date Dada Will MD [address] [place] [address] PCP - General Internal Medicine 09/18/20
--- OUTSIDE RECORDS SUMMARY | 2025-01-29 10:08 | XMS_ITS | Encounter Summary ---
Author Organization [facility] Address [address] [place] [address] Care Team Providers Care Bicycle Technician Name Role Phone Adina Dozier MD Primary Care Provider Parker Thapa, Pcp Primary Care Provider Mildred Harrell MD Primary Care Provider Unavail able Emma High MD Primary Care Provider U Adina Rangel MD Primary Care Provider Dada Stewart MD Primary Care Provider [phone] [phone] Encounter Details Date Type Department Care Team Description 03/27/2018 Release of Information Medical Records [address] [place] [address] Abstract, Provider Social History Tobacco Use Types Packs/Day Years Used Date Smoking Tobacco: Former Cigarettes Q uit: 11/20/2014 Smokeless Tobacco: Never Comments:started smoking at age 18 Alcohol Use Standard Drinks/Week Comments Yes 0 (1 standard drink = 0.6 oz pur e alcohol) occasional social Sex Assigned at Date Recorded Not on file documented as of this encounter Plan of Treatment Not on file documented as of this encounter Visit Diagnoses Not on filedocumented in this encounter Care Teams Bicycle Technician Relationship Specialty Start Date End Date Adina Dozier MD PCP - General Internal Medicine 12/10/16 8 Alanis, Pcp PCP - General Internal Medicine 07/19/18 10/09/18 Mildred Rosales MD PCP - General Internal Medicine 10/10/18 10/17/18 Emma High MD PCP - General Internal Medicine 10/18/1805/09 Adina Dozier MD PCP - General Internal Medicine 05/10/19 0 Dada Will MD [address] [place] [address] PCP - General Internal Medicine 09/18/20 documented as of this encounter
--- OUTSIDE RECORDS SUMMARY | 2025-01-29 10:08 | XMS_ITS | Encounter Summary ---
Author Organization [facility] Address [address] [place] [address] Care Team Providers Care Coagulant Dipper Name Role Phone Community, Pcp Primary Care Provider UnavailMildred De La Vega MD Primary Care Provider Unavail able Emma High MD Primary Care Provider U Adina Rangel MD Primary Care Provider Dada Stewart MD Primary Care Provider [phone] [phone] Encounter Details Date Type Department Care Team Description 10/05/2018 Release of Information Medical Records [address] [place] [address] Abstract, Provider Social History Tobacco Use Types [...] on filedocumented in this encounter Care Teams Coagulant Dipper Relationship Specialty Start Date End Date Community, Pcp PCP - General Internal Medicine 07/19/18 10/09/18 Mildred Rosales MD PCP - General Internal Medicine 10/10/18 10/17/18 Emma High MD PCP - General Internal Medicine 10/18/1805/09 Adina Dozier MD PCP - General Internal Medicine 05/10/1909/17/ 0 Dada Will MD [address] [place] [address] PCP - General Internal Medicine 09/18/20 documented as of this encounter
--- OUTSIDE RECORDS SUMMARY | 2025-01-29 10:08 | XMS_ITS | Encounter Summary ---
Author Organization [facility] Address [address] [place] [address] Care Team Providers Care Manager Supply Name Role Phone Dada Will MD Primary Care Provider [phone] [phone] Reason for Visit * Reason Onset Date Comments Letter 05/15/2021 Encounter Details Date Type Department Care Team Description 05/15/2021 Telephone Adult Medicine [address] [address] Dada Will MD [address] [place] [address] Letter Social History Tobacco Use Types Packs/Day Years Used Date Smoking Tobacco: Former Cigarettes 0.2 Q uit: 11/20/2014 Smokeless Tobacco: Never Comments:1-2 day Alcohol Use Standard Drinks/Week Comments Yes 0 (1 standard drink = 0.6 oz pur e alcohol) daily 40 oz until 01/26 Sex Assigned at Date Recorded Not on file documented as of this encounter Miscellaneous Notes * Telephone Encounter - Beronica Travis M.A. - 05/15/2021 3:14 PM EDT Pt should contact [email or web address] for extension. Pt called today for request. * Telephone Encounter - Mik Patiño - 05/15/2021 2:35 PM EDT Caller requesting call back from provider: Is the caller the patient? YES If caller is not the patient, what is the callers name? N/A Callers relationship to patient? N/A If person calling is not the patient themselves, is there a verbal release in FYI or permanent comments for this person: YES Reason for call back: Pt requested a electricity letter to be done pt states that no one inform herthat completition of letter will be ready in 7-10 days pt upset and will like a provider to call ptand clarify what should be done. The company closes at 4:30 and pt would like a call before 4:30pm. Caller offered to speak with the nurse for assistance: YES Response: Patient offered to speak with nurse for assistance and patient agreed. Message forwarded to nurse. documented in this encounter Plan of Treatment Not on file documented as of this encounter Visit Diagnoses Not on filedocumented in this encounter Care Teams Manager Supply Relationship Specialty Start Date End Date Dada Will MD [address] [place] [address] PCP - General Internal Medicine 09/18/20 documented as of this encounter
== END 2025-01-29 09:18 | disposition home or self-care (01) ==
LOC: HO.HHCL 09:17
PROVIDERS: Visit Provider Emergency Medicine
DX: Z13.89 Encounter for screening for other disorder (principal)

== ENCOUNTER 2025-02-04 17:43 | Outpatient (REF) | payer MEDICAID, SELFPAY ==
[2025-02-06 20:18] LABS: C. trachomatis RNA TMA NOT DETECTED (NOT DETECTED); N. gonorrhoeae RNA TMA NOT DETECTED (NOT DETECTED); Trichomonas (NAAT) NOT DETECTED (NOT DETECTED)
[2025-02-07 14:00] LABS: HPV Genotype 16 Negative (Negative); HPV Genotype 18 Negative (Negative); HPV High Risk Positive (Negative)
== END 2025-02-04 17:44 | disposition home or self-care (01) ==
LOC: HO.HHCLNP 17:43
PROVIDERS: Visit Provider Advanced Practice Midwife
DX: Z11.3 Encounter for screening for infections with a predominantly sexual mode of transmission (principal)
CPT/HCPCS: 87491; 87591; 87626; 87661; 88175

== ENCOUNTER 2025-05-23 11:19 | Outpatient (REF) | payer MEDICAID, SELFPAY ==
--- OUTSIDE RECORDS SUMMARY | 2025-05-23 10:30 | XMS_ITS | Encounter Summary ---
Author Organization [employer] Address [address] [place] [address] 7 [place] [address] Care Team Providers Care Conductor/Engineer Name Role Phone DeepaJeannie foss Primary Care Provider Reason for Referral * Consultation (Routine) - Authorized Specialty Diagnoses / Procedures Referred By Erica faith Referred To Contact Nutrition Diagnoses Obesity (BMI 30-39.9) Candy Ludwig MD [address] [place] [phone] Phone: tel: fax: Referral ID Status Reason Start Date Expiration Date Visits Requested Visits Authorized [id number] Authorized Specialty Services Required 05/23/2025 05/23/2026 1 1 Encounter Details Date Type Department Care Team (Late st Contact Info) Description 05/23/2025 10:30 AM EDT Office Visit [facility] [address] [place] [address] [phone] Candy Ludwig MD [address] [place] [address] [phone] Obesity (BMI 30-39.9) (Primary Dx); Amenorrhea Social History Tobacco Use Types Packs/Day Years Used Date Smoking Tobacco: Every Day Cigarettes Passive Smoke Exposure: Current Smokeless Tobacco: Never Tobacco Cessation:Ready to Q uit: Not Asked; Counseling Given: Not Answered Alcohol Use Standard Drinks/Week Comments Never 0 (1 standard drink = 0.6 oz pur e alcohol) Depression Answer Date Recorded Patient Health Questionnaire-9 Score 15 05/15/2025 Patient Health Questionnaire-9 Score 15 05/15/2025 Last PHQ-9: Questionnaire Data Not on file 0 05/15/2025 Housing Stability Answer Date Recorded What is [...] Date Recorded Patient Health Questionnaire-2 Score 3 05/15/2025 Internet Access Answer Date Recorded Internet Access [...] Sign Reading Time Taken Comments Blood Pressure 100/62 05/23/2025 10:37 AM EDT Pulse 81 05/23/2025 10:37 AM EDT Temperature 36.3 C (97.3 F) 05/23/2025 10:37 AM EDT Respiratory Rate 20 05/23/2025 10:37 AM EDT Oxygen Saturation 97% 05/23/2025 10:37 AM EDT Inhaled Oxygen Concentration - - Weight 104 kg (229 lb) 05/23/2025 10:37 AM EDT Height 163.8 cm (5' 4.5 ) 05/23/2025 10:37 AM ED T Body Mass Index 38.7 05/23/2025 10:37 AM EDT documented in this encounter Plan of Treatment Upcoming Encounters Date Type Department Care Team (Late st Contact Info) Description 06/24/2025 11:15 AM EDT Office Visit [facility] [address] [place] [address] Jeannie Peña DO [address] [place] [address] Scheduled Orders Name Type Priority Associated Diagnoses Orde r Schedule hCG, Total, Quantitative Lab Routine Amenorrhea Expected: 05/23/2025 (Approximate), Expires: 05/23/2026 Scheduled Referrals Name Type Priority Associated Diagnoses Orde r Schedule Referral to Nutrition Services, Internal Outpatient Referral Routine Obesity (BMI 30-39.9) Expected: 05/23/2025 (Approximate), Expires: 05/23/2026 documented as of this encounter Procedures Procedure Name Priority Date/Time Associated Diagnosis Comments POCT , URINE Routine 05/23/2025 11:03 AM EDT Amenorrhea documented in this encounter Results * POCT Urine (05/23/2025 11:03 AM EDT) Preg Test, Ur Negative Negative, Indeterminate, None Detected, Invalid, Specimen unsatisfactory for evaluation, Weakly Positive, 2+ QC Media Lot # [id number] Lot# Expiration Date [id number] Urine 05/23/2025 11:0 3 AM EDT Candy Hilliard MD POINT OF CARE TERENCE T ENTER/EDIT ORDERABLES Final Result documented in this encounter Visit Diagnoses Diagnosis Obesity (BMI 30-39.9)- Primary Amenorrhea Absence of menstruation documented in this encounter Additional Health Concerns Assessment Noted Time PHQ-9 Depression Total Score: 15 025 10:06 AM EDT documented as of this encounter Care Teams Conductor/Engineer Relationship Specialty Start Date End Date Jeannie Peña DO [address] [place] [address] PCP - General Family Medicine 01/09/25 documented as of this encounter
--- OUTSIDE RECORDS SUMMARY | 2025-05-23 12:39 | XMS_ITS | Encounter Summary ---
Author Organization [employer] Address [address] 7[address] [place] [address] Care Team Providers Care Employee Benefits Attorney Name Role Phone Casey Jeannie Primary Care Provider [phone] Reason for Visit * Reason Onset Date Comments Med Refill 03/11/2025 Encounter Details Date Type Department Care Team (Late st Contact Info) Description 03/11/2025 Refill [facility] [address] [place] [address] Ina You CNM [address] [place] [address] Social History Tobacco Use Types Packs/Day Years [...] Description 06/24/2025 11:15 AM EDT Office Visit [facility] [address] [place] [address] Jeannie Peña DO [address] [place] [address] documented as of this encounter Visit Diagnoses Not on filedocumented in this encounter Additional Health Concerns Assessment Noted Time PHQ-9 Depression Total Score: 12 025 10:07 AM EDT documented as of this encounter Care Teams Employee Benefits Attorney Relationship Specialty Start Date End Date Jeannie Peña DO [address] [place] [address] PCP - General Family Medicine 01/09/25 documented as of this encounter
--- OUTSIDE RECORDS SUMMARY | 2025-05-23 12:39 | XMS_ITS | Clinical Summary ---
Author Organization [address] [facility] Building Address [address] [place] [phone] Phone Care Team Providers Care Capture Manager Name Role Phone Dada Will MD Primary Care Provider [phone] Surgical History Surgery Date Site/Laterality Comments CARDIAC [...] Health Maintenance Due Date Last Done Comments COVID-19 Vaccine ( season) 2024 Depression Screening 09/26/2024 Social Influencers of Health Screening 05/17/2025 Influenza Vaccine (#1) 2025 06/30/2015 Cervical Cancer Screening: Pap Smear 02/05/2028 02/04/2025 Cholesterol Screening (Lipid Panel) 01/09/2030 01/09/2025 DTaP,Tdap,and Td Vaccines (11 - Td or Tdap) 02/16/2032 02/15/2022, 04/23/2018, 03/26/2015, Additional history exists Hepatitis B Vaccines Completed 04/03/1996, 1995, 1995 HIB Vaccines Completed 03/01/1997, 03/1996, 04/03/1996, Additional history exists IPV Vaccines Completed 02/03/2000, 03/1996, 04/03/1996, Additional history exists MMR Vaccines Completed 02/03/2000, 03/01/1997 Varicella Vaccines Completed 11/23/2007, 08/07/2007 Hepatitis A Vaccines Completed 05/23/2008, 11/23/19 08 Pneumococcal Vaccine: Pediatrics (0 to 5 Years) and At-Risk Patients (6 to 49 Years) Aged Out 11/02/2010 No longer eligible based on patient's age to complete this topic HPV Vaccines Completed 03/11/2014, 03/2012, 11/14/2009 Meningococcal ACWY Vaccine Completed 03/11/2014, HIV Screening Completed 01/09/2025 Hepatitis C Screening Completed 01/09/2025 Meningococcal B Vaccine Aged Out No l onger eligible based on patient's age to complete this topic RSV Immunization Patients Under 20 months Aged Out No longer eligible based on patient's age to complete this topic Insurance [employer] Care Teams Capture Manager Relationship Specialty Start Date End Date Dada Will MD [address] [place] [phone] PCP - General Internal Medicine 09/18/20
--- OUTSIDE RECORDS SUMMARY | 2025-05-23 12:39 | XMS_ITS | Encounter Summary ---
Author Organization [employer] Address [address] 7[address] [place] [address] Care Team Providers Care Embalmer Assistant Name Role Phone Jeannie Peña Primary Care Provider Encounter Details Date Type Department Care Team (Latest Contact Info) Description 05/22/2025 Travel Social History Tobacco Use Types Packs/Day Years Used Date Smoking Tobacco: Every Day Cigarettes Passive Smoke Exposure: Current Smokeless Tobacco: Never Alcohol Use Standard Drinks/Week [...] Description 06/24/2025 11:15 AM EDT Office Visit [facility] [address] [place] [address] Jeannie Peña DO [address] [place] [address] documented as of this encounter Visit Diagnoses Not on filedocumented in this encounter Additional Health Concerns Assessment Noted Time PHQ-9 Depression Total Score: 15 025 10:06 AM EDT documented as of this encounter Care Teams Embalmer Assistant Relationship Specialty Start Date End Date Jeannie Peña DO [address] [place] [address] PCP - General Family Medicine 01/09/25 documented as of this encounter
--- OUTSIDE RECORDS SUMMARY | 2025-05-23 12:39 | XMS_ITS | Encounter Summary ---
Author Organization [employer] Address [address] [place] [address] Care Team Providers Care Deputy Director Of Public Works Name Role Phone Jeannie Peña DO Primary Care Provider [phone] Reason for Visit * Reason Onset Date Comments Lab Orders 05/21/2025 Appointment Request 05/21/2025 Call Back Request 05/21/2025 Encounter Details Date Type Department Care Team ([facility] st Contact Info) Description 05/21/2025 Telephone [facility] [address] [place], [place] [phone] Jeannie Peña DO [address] [place] [address] Lab Orders; Appointment Request; Call Back Request Social History Tobacco Use Types Packs/Day Years [...] encounter Miscellaneous Notes * Telephone Encounter - Fransisco Mclaughlin RN - 05/21/2025 10:47 AM EDT Noted see previous enconter. * Telephone Encounter - Lisa Brandon - 05/21/2025 8:38 AM EDT Tc from pt stating she is currently 21 days late of her period , and she is requesting a lab order to get a test done by blood . Also is requesting to be seen today , to have a form signed as she is not getting COVID vaccine and job requires pcp to sign off if vaccine is denied Contact pt at [phone] documented in this encounter Plan of Treatment Upcoming Encounters Date Type Department Care Team (Late st Contact Info) Description 06/24/2025 11:15 AM EDT Office Visit [facility] [address] [place] [address] Jeannie Peña DO [address] [place] [address] documented as of this encounter Visit Diagnoses Not on filedocumented in this encounter Additional Health Concerns Assessment Noted Time PHQ-9 Depression Total Score: 15 05/15/ 025 10:06 AM EDT documented as of this encounter Care Teams Deputy Director Of Public Works Relationship Specialty Start Date End Date Jeannie Peña DO [address] [place] [address] PCP - General Family Medicine 01/09/25 documented as of this encounter
--- OUTSIDE RECORDS SUMMARY | 2025-05-23 12:39 | XMS_ITS | Encounter Summary ---
Author Organization [employer] Address [address] [place] [address] Care Team Providers Care Senior It Auditor Name Role Phone Jeannie Peña DO Primary Care Provider [phone] Reason for Visit * Reason Onset Date Comments Referral 02/12/2025 Encounter Details Date Type Department Care Team ([facility] st Contact Info) Description 02/12/[address] [facility] [address] [place], [place] [phone] Jeannie Peña DO [address] [place], [place] [phone] Referral Social History Tobacco Use Types Packs/Day Years [...] Telephone Encounter - Fransisco Mclaughlin RN - 02/12/2025 2:59 PM EDT TC placed to patient [phone] regarding below message. Patient informed RN that she needs a referral for plastic surgeon for a breast reduction. RN informed patient that a message will sent to the PCP for review. Pt verbalized understanding. Pt to F/U PRN. * Telephone Encounter - Fortino Myrick - 02/12/2025 1:44 PM EDT Tc from pt requesting referral for breast reduction pt inform PCP is aware. documented in this encounter Plan of Treatment Upcoming Encounters Date Type Department Care Team (Late st Contact Info) Description 06/24/2025 11:15 AM EDT Office Visit [facility] [address] [place] [address] Jeannie Peña DO [address] [place] [address] documented as of this encounter Visit Diagnoses Not on filedocumented in this encounter Additional Health Concerns Assessment Noted Time PHQ-9 Depression Total Score: 12 025 10:07 AM EDT documented as of this encounter Care Teams Senior It Auditor Relationship Specialty Start Date End Date Jeannie Peña DO [address] [place] [address] PCP - General Family Medicine 01/09/25 documented as of this encounter
--- OUTSIDE RECORDS SUMMARY | 2025-05-23 12:39 | XMS_ITS | Clinical Summary ---
Author Organization [employer] Address [address] [place] [address] Care Team Providers Care Fruit Or Nut Grower Name Role Phone CarolineJeannie shea Primary Care Provider Allergies Active Allergy Reactions Criticality Noted Date Comments Clonazepam Rash Low 01/09/2025 Penicillins Hives 01/09/2025 Medications acetaminophen (Tylenol) 500 MG tablet Take 2 tablets (1,000 mg) by mouth every 6 (six) hours if needed for moderate pain or fever for up to 25 doses. 50 tablet 01/30/20 25 Active lidocaine (Lidoderm) 5 % patch Apply 1 patch topically Once per day. Remove & discard patch within 12 hours or as directed by MD. May use 2 patches at once. 60 patch 2 01/30/20 25 026 Active betamethasone dipropionate 0.05 % creamIndication s:Plaque psoriasis Apply topically 2 times daily. 45 g 05/15/20 25 Active ergocalciferol (Vitamin D2) 1.25 MG (66454 UT) capsuleIndicati ons:Vitamin D Deficiency Take 1 capsule (1.25 mg) by mouth 1 (one) time per week. 12 capsule 05/23/20 25 025 Active Drospirenone (Slynd) 4 MG tablet Take 1 tablet by mouth Once per day. 28 tablet 11 05/23/20 25 Active benzoyl peroxide 5 % gel Apply topically 2 times daily. 60 g 2 05/23/20 25 026 Active tiZANidine (Zanaflex) 2 MG tablet Take 1 tablet (2 mg) by mouth every 8 (eight) hours if needed for muscle spasms for up to 10 days. 30 tablet 01/30/20 25 025 Discontinued(Ot her) Drospirenone (Slynd) 4 MG tablet Take 1 tablet by mouth Once per day. 28 tablet 11 02/05/20 025 Discontinued(Re order (will not trigger notification to Pharmacy)) triamcinolone (Kenalog) 0.1 % ointmentIndicat ions:Plaque psoriasis Apply topically 2 times daily. 80 g 05/15/20 25 025 Discontinued triamcinolone (Kenalog) 0.1 % ointmentIndicat ions:Plaque psoriasis Apply topically 2 times daily. 80 g 05/15/20 25 025 Discontinued Active Problems Problem Noted Date Diagnosed Date Tobacco dependence 01/29/2025 Constipation 01/09/2025 Severe obesity (BMI 35.0-39.9) with comorbidity 01/09/2025 Cervical high risk HPV (human papillomavirus) te st positive 01/09/2025 S/P VSD repair 12/21/2018 Depression 12/21/2018 Anxiety 12/21/2018 Chronic thoracic back pain 12/10/2016 Bipolar affective 06/30/2015 Overview (05/23/2025): No current therapist Encounters Date Type Department Care Team Description 05/23/2025 10:30 AM EDT Office Visit [address] [address] Candy Ludwig MD Obesity (BMI 30-39.9) (Primary Dx); Amenorrhea 05/23/2025 Travel 05/22/2025 Travel 05/21/[address] [address] Jeannie Peña DO Lab Orders; Appointment Request; Call Back Request 05/15/2025 10:00 AM EDT Office Visit [address] [phone] Alton Gibson CNP Plaque psoriasis (Primary Dx) 05/15/2025 Travel 05/14/2025 Telephone [facility] [address] [place] [address] Jeannie Peña DO Nurse Triage 05/14/[address] [address] Jeannie Peña, Medication Question 03/11/2025 Refill [facility] [address] [place] [address] Nanda Ordoñez, LAYM 03/07/2025 Telephone [facility] [address] [place] [address] Jeannie Peña, DO Med Refill from Last 3 Months Immunizations Immunization Administration Dates Next Due DTaP 02/03/2000, 7,08/02/1996,04/03,1995 [...] Paternal Grandmother Hypertension Paternal Grandmother Asthma Sister Breast cancer Neg Hx Colon cancer Neg Hx Ovarian cancer Neg Hx Relation Name Status Comments Brother Father Alive [...] Q2 Not on file 01/09/2025 Comments No Intention Date Recorded Not sure of desire to become (f inding) 02/04/2025 Sex and Gender Information Value Date Recorded [...] Mass Index 38.7 05/23/2025 10:37 AM EDT Plan of Treatment Upcoming Encounters Date Type Department Care Team (Late st Contact Info) Description 06/24/2025 11:15 AM EDT Office Visit [facility] [address] [place], [place] [phone] Jeannie Peña DO [address] [place], [place] [phone] Health Maintenance Due Date Last Done Comments Pneumococcal Vaccine: Pediatrics (0 to 5 Years) and At-Risk Patients (6 to 49) Years (2 of 2 - PPSV23) 12/28/2010 11/02/2010 COVID-19 Vaccine ( season) 2024 Influenza Vaccine (#1) 2025 06/30/2015, 2014 Depression Monitoring 11/15/2025 05/15/2025, 025 Alcohol/Substance Use Screening 01/09/2026 01/09/2025 SDOH Screening 01/09/2026 01/09/2025 Disability Screening 02/03/2026 02/03/2025 Family Planning (PISQ) 02/04/2026 02/04/2025 HPV/Cotest 02/04/2026 02/04/2025 Pap Smear 02/04/2026 02/04/2025, 10/28, 10/28/2021 Tobacco Screening 05/23/2026 05/23/2025 Lipid Panel 01/09/2030 01/09/2025 DTaP/Tdap/Td Vaccines (11 [...] patient's age to complete this topic RSV under 20 months Aged Out No longe r eligible based on patient's age to complete this topic Rotavirus Vaccines Aged Out No longer eligible based on patient's age to complete this topic Procedures Procedure Name Priority Date/Time Associated Diagnosis Comments POCT , URINE Routine 05/23/2025 11:03 AM EDT Amenorrhea HPV DNA, LOW/HIGH RISK Routine 02/04/2025 12:00 AM EDT PAP SMEAR Routine 02/04/2025 12:00 AM EDT Screening examination for venereal disease HEPATITIS C AB W/REFL TO HCV RNA, QN, PCR Routine 01/09/2025 10:02 AM EDT Routine history and physical examination of adult Obesity (BMI 30-39.9) HIV 1/2 ANTIGEN/ANTIBODY, FOURTH GENERATION W/RFL Routine 01/09/2025 10:02 AM EDT Routine history and physical examination of adult Obesity (BMI 30-39.9) LIPID PANEL, STANDARD Routine 01/09/2025 10:02 AM EDT Routine history and physical examination of adult Obesity (BMI 30-39.9) from Last 3 Months or Most Recently Relevant to Health Maintenance Results * POCT Urine (05/23/2025 11:03 AM EDT) Preg Test, Ur Negative Negative, Indeterminate, None Detected, Invalid, Specimen unsatisfactory for evaluation, Weakly Positive, 2+ QC Media Lot # [id number] Lot# Expiration Date [id number] Urine 05/23/2025 11:0 3 AM EDT Candy Hilliard MD POINT OF CARE TERENCE T ENTER/EDIT ORDERABLES Final Result * (ABNORMAL) HPV DNA, Low/High Risk (02/04/2025 12:00 AM EDT) HPV High Risk Positive(A) Negative [facility] HPV Genotype 16 Negative Negative [facility] HPV Genotype 18 Negative Negative [facility] Comment:HPV testing performe d at [facility] (CLIA#[id number]), [address] [place] [address].Testing for HPV was performed using the [employer]system. The presence of HPV in the female genital tract isassociated with a number of diseases, including cervicalcarcinoma. The HPV DNA high risk pool tests for HPV 31, 33,35, 39, 45, 51, 52, 56, 58, 59, 66 and 68. The testing forHPV 16 and 18 genotypes has also been performed. A positiveresult indicates detection of nucleic acid sequences fromone or more subtypes, whereas a negative result indicatessuch sequences were not detected. 02/04/2025 02/05/2025 6:0 0 AM EDT us Nanda CHUN LAB BLOOD ORDERABLES Meenakshi l Result [facility] [address] [place] [phone] * Pap Smear (02/04/2025 12:00 AM EDT) Swab Cervix uteri structure / Unknown 02/04/2025 02/05/2025 6:17 AM EDT [facility] - 02/08/2025 9:27 AM EDT ----- ------- Name: BettsKarol Sarahy Age/Sex: 29/F : 1995 Unit#: [id number] Attend Dr: NANDA ORDOÑEZ CNM Re02/04/25 Status: DEP [facility]F [facility] Disch: ----- ------- SPEC : [id number] RECD: 02/05/25 STATUS: TOBINJustyna GANGA NUM: [id number] LEANN: 02/04/25-[address]: NANDA ORDOÑEZ CNM ENTERED: 02/05/25 SP TYPE: Pap Smr OTHR : ORDERED: Pap Smear Interpretation Satisfactory for evaluation. Negative for intraepithelial lesion or malignancy. Coccobacilli consistent with shift in vaginal rony. HPV High Risk: Positive HPV Genotyping 16: Negative HPV Genotyping 18: Negative Clinical Information LMP:01/25/25 Previous PAP test:Unknown date/findings Material Received ThinPrep-Cervical ----- ------- Signed (signature on file) MIGNON Fleming ([facility]) 02/08/25 0927 ----- ------- END OF REPORT Nanda CHUN LAB CYTOLOGY ORDERABLES F inal Result Performing Organization Address [facility]/ZIP Co de Phone Number [facility] [address] [place] [address] [phone] * Hepatitis C Antibody with Reflex to HCV, RNA, Quantitative, Real-Time PCR (01/09/2025 10:02 AM EDT) Pathologist [facility] Hepatitis C Antibody Nonreactive Nonreactive [facility] Comment:Antibodies to HCV no t detected; does not exclude early acuteHCV infection. Blood Venous blood specimen / Unknown 01/09/2025 10:02 AM EDT 01/09/2025 11:10 AM EDT Jeannie Peña DO LAB BLOOD ORDERABLES Final R esult Performing Organization Address [facility]/ZIP Co de Phone Number [facility] [address] [place] [phone] * HIV-1/2 Antigen and Antibodies, Fourth Generation, with Reflexes (01/09/2025 10:02 AM EDT) HIV AB/AG Nonreactive Nonreactive [facility] Comment:HIV-1 p24 Ag and/or HIV-1/HIV-2 Ab not detected.A test result that is nonreactive does not exclude thepossibility of exposure to or infection with HIV-1 and/orHIV-2. Nonreactive results in this assay for individualswith prior exposure to HIV-1 and/or HIV-2 may be due toantigen and antibody levels that are below the limit ofdetection of this assay.The [employer] HIV Ag/Ab Combo assay result andsupplemental assay results should be interpreted inconjunction with the patient's clinical presentation,history and other laboratory results. If the results areinconsistent with clinical evidence, additional testing issuggested to confirm the result. Blood Venous blood specimen / Unknown 01/09/2025 10:02 AM EDT 01/09/2025 11:10 AM EDT us Jeannie Peña DO LAB BLOOD ORDERABLES Final R esult [facility] [address] [place] [phone] * (ABNORMAL) Lipid Panel, Standard (01/09/2025 10:02 AM EDT) Triglycerides 81 <150 mg/dL [facility] Comment:Desirable Triglyceri de: less than 150 mg/dLBorderline High Triglyceride 150-199 mg/dLHigh Triglyceride: 200-499 mg/dLVery High Triglyceride: greater than or equal to 5OO mg/dL Cholesterol 170 <200 mg/dL [facility] Comment:Desirable Cholestero l: less than 200 mg/dLBorderline High Cholesterol: 200-239 mg/dLHigh Cholesterol: greater than 239 mg/dL LDL Cholesterol Calculated 102(H) <100 mg/dL [facility] Comment:Desirable LDL: less than 100 mg/dLNear Optimal/Above Optimal LDL: 110- 129 mg/dLBorderline High LDL: 130-159 mg/dLHigh LDL: 160-189 mg/dLVery High LDL: greater than or equal to 190 mg/dL HDL Cholesterol 52 >40 mg/dL [facility] Comment:Desirable HDL: great er than 40 mg/dL Note: This HDL assay may give artificially low results in patients with liver disease. Blood Venous blood specimen / Unknown 01/09/2025 10:02 AM EDT 01/09/2025 11:10 AM EDT Jeannie Peña DO LAB BLOOD ORDERABLES Final R esult [facility] [address] [place] [address] [phone] from Last 3 Months or Most Recently Relevant to Health Maintenance Insurance * Guarantor: Karol Betts Account Type Relation to Patient Date of Phone Billing Address Personal/Family Self 1995 [address] [place] [address] Eachbaby C3 Care Teams Fruit Or Nut Grower Relationship Specialty Start Date End Date Jeannie Peña DO [address] [place] [address] PCP - General Family Medicine 01/09/25
--- OUTSIDE RECORDS SUMMARY | 2025-05-23 12:39 | XMS_ITS | Encounter Summary ---
Author Organization [employer] Address [address] [facility] [address] [place] [address] Care Team Providers Care Topper Packer Name Role Phone Donna Peñafer Primary Care Provider [phone] Encounter Details Date Type Department Care Team (Late st Contact Info) Description 02/06/2025 Orders Only [facility] [address] [place] [address] Provider, MD Yakelin Social History Tobacco Use Types Packs/Day Years [...] is your housing situation today? I have doylecollette gillette 01/09/[address] you [...] the past 12 months, has t he [employer], gas, oil or water company threatened to [...] Description 06/24/2025 11:15 AM EDT Office Visit [facility] [address] [place], [place] [phone] eJannie Peña DO [address] [place] [address] documented as of this encounter Procedures Procedure Name Priority Date/Time Associated Diagnosis Comments GYNECOLOGIC PAP [id number] FOR CERVICAL CANCER CTNGT Routine 11/16/2022 10:54 AM EST GYNECOLOGIC PAP [id number] FOR CERVICAL CANCER CTNGT Routine 10/28/2021 10:52 AM EST documented in this encounter Results * Gynecologic Pap [id number] Guideline for Cervical Cancer (Aptima??) Plus Chlamydia/Gonococcus/Trichomonas (11/16/2022 10:54 AM EST) ThinPrep vial (Cervical cells) Historical Provider MD LAB CYTOLOGY ORDERABLES F inal Result * Gynecologic Pap Cqqd-Ruw-hfhel Guideline for Cervical Cancer (Aptima??) Plus Chlamydia/Gonococcus/Trichomonas (10/28/2021 10:52 AM EST) ThinPrep vial (Cervical cells) Historical Provider MD LAB CYTOLOGY ORDERABLES F inal Result documented in this encounter Visit Diagnoses Not on filedocumented in this encounter Additional Health Concerns Assessment Noted Time PHQ-9 Depression Total Score: 12 025 10:07 AM EDT documented as of this encounter Care Teams Topper Packer Relationship Specialty Start Date End Date Jeannie Peña DO [address] [place] [address] PCP - General Family Medicine 01/09/25 documented as of this encounter
--- OUTSIDE RECORDS SUMMARY | 2025-05-23 12:39 | XMS_ITS | Encounter Summary ---
Author Organization [employer] Address [address] [place] [address] Care Team Providers Care Director Of Reimbursement Name Role Phone Jeannie Peña DO Primary Care Provider [phone] Reason for Visit * Reason Onset Date Comments Medication Question 05/14/2025 Encounter Details Date Type Department Care Team ([facility] st Contact Info) Description 05/14/2025 Telephone [facility] [address] [place] [address] Jeannie Peña DO [address] [place], [place] [phone] Medication Question Social History Tobacco Use Types Packs/Day Years [...] AM EST documented as of this encounter Functional Status * Over the past 2 weeks, how often have you been bothered by any of the following problems? Question Answer Date of Assessment Author Patient Health Questionnaire-2 Score 3 04/27 10:06 AM EDT Jennifer Tapia MA * Little interest or pleasure in doing things Answer Date of Assessment Author More than half the days 05/15/2025 10:06 AM JERIT Jennifer Tapia MA * Feeling down, depressed, or hopeless Answer Date of Assessment Author Several days 05/15/2025 10:06 AM JERIT Isabella Tapia MA * Trouble falling or staying asleep, or sleeping too much Answer Date of Assessment Author Nearly every day 05/15/2025 10:06 AM Cruz Salazar MA * Feeling tired or having little energy Answer Date of Assessment Author Several days 05/15/2025 10:06 AM JERIT Isabella Tapia MA * Poor appetite or overeating Answer Date of Assessment Author More than half the days 05/15/2025 10:06 AM Jennifer Salazar MA * Feeling bad about yourself - or that you are a failure or have let yourself or your family down Answer Date of Assessment Author Nearly every day 05/15/2025 10:06 AM Cruz Salazar MA * Trouble concentrating on things, such as reading the newspaper or watching television Answer Date of Assessment Author Several days 05/15/2025 10:06 AM EDT Isabella Tapia MA * Moving or speaking so slowly that other people could have noticed? Or the opposite - being so fidgety or restless that you have been moving around a lot more than usual. Answer Date of Assessment Author More than half the days 05/15/2025 10:06 AM EDT Jennifer Tapia MA * Thoughts that you would be better off or hurting yourself in some way Answer Date of Assessment Author Not at all 05/15/2025 10:06 AM EDT Isabella Tapia MA * Patient Health Questionnaire-9 Score Answer Date of Assessment Author 15 05/15/2025 10:06 AM EDT Isabella Tapia MA * How difficult have these problems made it for you to do your work, take care of things at home, or get along with other people? Answer Date of Assessment Author Not difficult at all 05/15/2025 10:06 AM EDT Jennifer Cardona MA documented as of this encounter Miscellaneous Notes * Telephone Encounter - Fransisco Mclaughlin RN - 05/21/2025 10:32 AM EDT TC placed to patient [phone] regarding below and previous messages. Patient reported that her menstrual cycle is 21 days late and she has had 2 negative home tests. Patient reported that this has occurred with her last two children and she need HCG to prove . Patient reported she needs a form signed for her new Employer because she declined the Covid vaccine and needs her PCP to sign. RN directed the patient to Medical records where the form than will be sent to her PCP to sign. Patient reported she has been doing Physical Therapy for Macromastia and she has only completed 4 sessions, RN encouraged patient according to her referral she has 6 visits and need to complete all the visits to be approved for a Breast reduction surgery. Patient inquired about Zepbound. This RN informed her that her PCP wants her to come in for a weight check and to talk about the medication. RN scheduled an appt. PT agreed to the appt. PT verbalizedunderstanding. PT to F/U PRN. * Telephone Encounter - Anusha Marquez RN - 05/14/2025 4:11 PM EDT Return call placed to the pt in regards to the request for Zepbound to help the pt lose weight. Pt ABHIJEET with PCP was on 01/09/2025 and last recorded weight was 229 Lb on 02/04. The pt states that her weight is compounded by macromastia that the pt is currently waiting to have reduced via a plastic surgeon. The pt has already been referred by PCP and has also been doing PT X4 weeks to help alleviate back pain caused by it. The pt states that she has attended all 4 PT sessions and wanted to know if she should continue. Back pain is still evident but has some improvement. Pt is most concerned with the breast reduction and losing weight. Pt has tried diet, exercise and still can't see incremental w eight loss. Pt advised that the request will be sent to PCP for review and advisement. * Telephone Encounter - Jatin Benoit - 05/14/2025 1:50 PM EDT TC from pt requesting to be prescribed Zepbound . Pt reports has been struggling with weight for a few years now . documented in this encounter Plan of Treatment Upcoming Encounters Date Type Department Care Team (Late st Contact Info) Description 06/24/2025 11:15 AM EDT Office Visit [facility] [address] [place] [address] Jeannie Peña DO [address] [place] [address] documented as of this encounter Visit Diagnoses Not on filedocumented in this encounter Additional Health Concerns Assessment Noted Time PHQ-9 Depression Total Score: 12 01/09/2 025 10:07 AM EDT documented as of this encounter Care Teams Director Of Reimbursement Relationship Specialty Start Date End Date Jeannie Peña DO [address] [place] [address] PCP - General Family Medicine 01/09/25 documented as of this encounter
--- OUTSIDE RECORDS SUMMARY | 2025-05-23 12:39 | XMS_ITS | Encounter Summary ---
Author Organization [employer] Address [address] [place] [address] Care Team Providers Care Emergency Services Director Name Role Phone Jeannie Peña Primary Care Provider [phone] Encounter Details Date Type Department Care Team (Latest Contact Info) Description 05/23/2025 Travel Social History Tobacco Use Types Packs/Day [...] Description 06/24/2025 11:15 AM EDT Office Visit [facility] [address] [place] [address] Jeannie Peña DO [address] [place] [address] documented as of this encounter Visit Diagnoses Not on filedocumented in this encounter Additional Health Concerns Assessment Noted Time PHQ-9 Depression Total Score: 15 025 10:06 AM EDT documented as of this encounter Care Teams Emergency Services Director Relationship Specialty Start Date End Date Jeannie Peña DO [address] [place] [address] PCP - General Family Medicine 01/09/25 documented as of this encounter
[2025-05-24 03:39] LABS: Syphilis Screen Nonreactive (Nonreactive)
[2025-05-24 03:50] LABS: HIV Num 1 0.06 S/CO (0.00-0.99)
== END 2025-05-23 11:20 | disposition home or self-care (01) ==
LOC: HO.HHCL 11:19
PROVIDERS: PCP Family Medicine; Referring Provider Advanced Practice Midwife; Visit Provider Student in an Organized Health Care Education/Training Program
DX: N91.2 Amenorrhea, unspecified (principal); Z11.3 Encounter for screening for infections with a predominantly sexual mode of transmission; Z01.84 Encounter for antibody response examination; Z11.4 Encounter for screening for human immunodeficiency virus [HIV]
CPT/HCPCS: 36415; 84702; 86780; 87389

== ENCOUNTER 2025-06-11 12:26 | Outpatient (RCR) | payer MEDICAID, SELFPAY | END 2025-06-11 13:54 | disposition home or self-care (01) | LOC: HO.PT 12:26 | PROVIDERS: PCP Family Medicine; Visit Provider Family Medicine | DX: M54.9 Dorsalgia, unspecified (principal); G89.29 Other chronic pain | CPT/HCPCS: 97110; 97162 ==